=== PATIENT | female | born 1950 | race Two or more races ===

== ENCOUNTER 2017-04-20 15:31 | Inpatient (IN) | payer MEDICARE, MEDICAID ==
[~2017-04-20] VITALS: Ht 160 cm; Wt 76.7 kg
--- NOTE | 2017-04-20 15:31 | NUR ---
SENT BY DR ORTEGA FROM OFFICE FOR ADMISSION FOR CHF. PT AAO X4, AMB WITH STEADY GAIT, BRITISH SPEAKER. DAUGHTER AT BEDISDE. RR EVEN AND AND UNLABORED, PLACED IN GOWN. DR DE SOUZA AT BEDSIDE FOR EVAL.
[2017-04-20] MEDS ORDERED: FUROSEMIDE 40 MG/4 ML VIAL IV ONE (16:30)
[2017-04-20] MEDS ORDERED: FUROSEMIDE 40 MG/4 ML VIAL ONE (16:43)
[2017-04-20] MEDS ORDERED: FUROSEMIDE 20 MG/2 ML VIAL ONE (16:43)
[2017-04-20 16:47] LABS: BASOPHILS % (AUTO) 0.9 % (0.0-2.0); EOSINOPHILS # (AUTO) 0.2 /CMM (0.0-0.7); EOSINOPHILS % (AUTO) 3.8 % (0.0-6.0); HEMATOCRIT 26 % (33-45); HEMOGLOBIN 8.9 g/dL (11.5-14.8); LYMPHOCYTES # (AUTO) 1.5 /CMM (0.8-4.8); LYMPHOCYTES % (AUTO) 30.7 % (20.0-44.0); MEAN CORPUSCULAR HEMOGLOBIN 29 PG (26.0-33.0); MEAN CORPUSCULAR HGB CONC 34 g/dl (31.0-36.0); MEAN CORPUSCULAR VOLUME 87 fL (82-100); MONOCYTES # (AUTO) 0.4 /CMM (0.1-1.30); MONOCYTES % (AUTO) 7.7 % (2.0-12.0); NEUTROPHILS # (AUTO) 2.8 /CMM (1.8-8.9); NEUTROPHILS % (AUTO) 56.9 % (43.0-81.0); PLATELET COUNT (AUTO) 363 /CMM (150-450); RDW COEFFICIENT OF VARIATION 13.6 (11.5-15.0); RED BLOOD CELL COUNT(AUTO) 3.05 MIL/uL (4.0-5.2); WHITE BLOOD COUNT (AUTO) 4.9 K/uL (4.3-11.0)
[2017-04-20] MEDS ORDERED: ALBU8.5H2 IH (17:01)
[2017-04-20] MEDS ORDERED: PANT40TA4 PO (17:01)
[2017-04-20] MEDS ORDERED: MULT-659 PO (17:01)
[2017-04-20] MEDS ORDERED: BUME1TAB16 PO (17:01)
[2017-04-20] MEDS ORDERED: FERR-58 PO (17:01)
[2017-04-20] MEDS ORDERED: SITA50TA PO (17:01)
[2017-04-20] MEDS ORDERED: MONT10TA22 PO (17:01)
[2017-04-20] MEDS ORDERED: OMEG500C PO (17:01)
[2017-04-20] MEDS ORDERED: ATOR10TA PO (17:01)
[2017-04-20 17:03] LABS: CALCIUM, SERUM 8.6 mg/dL (8.5-10.1); CREATININE 1.4 mg/dL (0.6-1.3); POTASSIUM 4.8 mmol/L (3.5-5.1)
[2017-04-20 17:07] LABS: INR 1.07 (0.87-1.13); PROTHROMBIN TIME 11.1 SECS (9.5-12.7)
[2017-04-20 17:12] LABS: TROPONIN I 0.204 ng/mL (0.00-0.056)
[2017-04-20 17:16] LABS: ALBUMIN 2.8 g/dL (3.4-5.0); BILIRUBIN,DIRECT 0.1 mg/dL (0.0-0.2); BILIRUBIN,TOTAL 0.5 mg/dL (0.2-1.0); TOTAL PROTEIN, SERUM 6.6 g/dL (6.4-8.2)
[2017-04-20] MEDS ORDERED: ALBUTEROL FS 2.5 MG/3 ML VIAL.NEB NEB PRN (17:30)
[2017-04-20] MEDS ORDERED: ZOLPIDEM TARTRATE 5 MG TABLET PO PRN (17:30)
[2017-04-20] MEDS ORDERED: ACETAMINOPHEN 325 MG TABLET PO PRN (17:30)
[2017-04-20] MEDS ORDERED: Z GUARD REMEDY 2 OZ OINT TP PRN (17:30)
[2017-04-20] MEDS ORDERED: MAG HYDROX/AL HYDROX/SIMETH 30 ML UDC PO PRN (17:30)
[2017-04-20] MEDS ORDERED: ONDANSETRON HCL/PF 4 MG/2 ML VIAL IVP PRN (17:30)
[2017-04-20] MEDS ORDERED: ENOXAPARIN SODIUM 40 MG/0.4 ML DISP.SYRIN SQ SCH (17:30)
[2017-04-20] MEDS ORDERED: MAGNESIUM HYDROXIDE 30 ML UDC PO PRN (17:30)
[2017-04-20] MEDS ORDERED: DEXTROSE 50%-WATER 50 ML DISP.SYRIN IV PRN (17:30)
[2017-04-20] MEDS ORDERED: HYDROCODONE/APAP 5/325MG 1 EACH TABLET PO PRN (17:30)
[2017-04-20] MEDS ORDERED: ASPIRIN 81 MG TAB.CHEW PO ONE (18:00)
[2017-04-20] MEDS ORDERED: MONTELUKAST SODIUM (10MG) 10 MG TABLET PO SCH (18:00)
--- NOTE | 2017-04-20 18:19 | NUR ---
REPORT GIVEN TO CHINO CLARK FOR ANTOINETTE
[2017-04-20] MEDS ORDERED: ASPIRIN 81 MG TAB.CHEW ONE (18:30)
--- NOTE | 2017-04-20 18:30 | NUR ---
MS RN RECEIVED A 66 YEAR OLD FEMALE, AWAKE,ALERT,ORIENTED X3,NOT IN ANY FORM OF DISTRESS, RESPIRATIONS EVEN AND UNLABORED,NO SOB NOTED. NEW ADMISSION FROM ER, W/ DX OF CHF, DENIES PAIN AT THIS TIME, WILL MONITOR PATIENT'S CONDITION.
[2017-04-20 19:15] VITALS: BP 134/81
--- NOTE | 2017-04-20 19:30 | NUR ---
MS RN REPORT GIVEN TO PATIENT COORDINATOR FOR CONTINUITY OF CARE.
--- NOTE | 2017-04-20 19:31 | NUR ---
RN NOTES ADMITTED A 66 YEARS OLD FEMALE PT FROM ER WITH PRIMARY DIAGNOSIS OF ACUTE CHF UNDER DR LEDESMA. PT ALERT AND ORIENTED X3, APPEARS ANXIOUS WITH DAUGHTER AT BEDSIDE. VITAL SIGNS STABLE, NO SOB, NOT IN DISTRESS, ON ROOM AIR WITH GOOD SATURATION. PT DENIES ANY PAIN AND DISCOMFORT AT THIS TIME. ATTACHED TO TELE MONITOR WHICH READS SINUS TACH WITH HEART RATE AT 104. SKIN AND BODY ASSESSMENT DONE, SKIN CLEAR AND INTACT WITH PITTING EDEMA +3 ON BOTH LOWER LEG. PT IS AMBULATORY WITH STEADY GAIT. KEPT COMFORTABLE AND ATTENDED. ALL ORDERS NOTED AND CARRIED OUT. WILL CONTINUE TO MONITOR PT.
--- NOTE | 2017-04-20 19:55 | NUR ---
RN NOTES VISITED BY DR MAJOR, SEEN AND EXAMINED PT. NO NEW ORDERS MADE.
[2017-04-20 20:00] VITALS: BP 134/81
[2017-04-20] MEDS ORDERED: ENOXAPARIN SODIUM 30 MG/0.3 ML DISP.SYRIN SQ SCH (21:00)
--- NOTE | 2017-04-20 22:28 | NUR ---
RN NOTES PT COMPLAINS OF MILD CHEST PAIN 3/10, AFTER GOING TO THE BATHROOM. TYLENOL 650 MG TAB GIVEN PO AND TOLERATED WELL WILL CONTINUE TO MONITOR PT.
[2017-04-20] MEDS: BLOOD SUGAR DIAGNOSTIC 1 EACH STRIP IN SCH (22:29)
[2017-04-20] MEDS: INSULIN REGULAR, HUMAN 100 UNIT/ML 3 ML VIAL SQ PRN (22:30)
--- NOTE | 2017-04-20 22:30 | NUR ---
RN NOTES BLOOD SUGAR CHECKED 225 MG/DL, PT REFUSED FOR THE 4 UNITS INSULIN PER SLIDING SCALE. PT SAID SHE'S NOT TAKING INSULIN ONLY JANUVIA IN AM. RISK AND BENEFITS WERE EXPLAINED, PT STRONGLY REFUSED. WILL CONTINUE TO MONITOR PT.
[2017-04-21] MEDS ORDERED: MORPHINE SULFATE INJ 2 MG/ML DISP.SYRIN IV PRN
--- NOTE | 2017-04-21 | NUR ---
RN NOTES PT REFUSED TO CHECKED HER VITAL SIGNS DUE AT THIS TIME.
[2017-04-21] MEDS: BLOOD SUGAR DIAGNOSTIC 1 EACH STRIP IN SCH (06:46)
--- NOTE | 2017-04-21 06:46 | NUR ---
RN NOTES BLOOD SUGAR CHECKED 119 MG/DL, NO INSULIN COVERAGE PER SLIDING SCALE. NO SIGNS OG HYPOGLYCEMIA NOTED.
[2017-04-21] MEDS: INSULIN REGULAR, HUMAN 100 UNIT/ML 3 ML VIAL SQ PRN (06:47)
[2017-04-21 07:07] VITALS: BP 135/83
--- NOTE | 2017-04-21 07:20 | NUR ---
RN NOTES PT AWAKE SITTING IN BED, DENIES ANY PAIN AND DISCOMFORT AT THIS TIME. ON ROOM AIR AND TOLERATED WELL. VITAL SIGNS STABLE, AFEBRILE. NO COMPLAIN OF CHEST PAIN, NO EPISODE OF NAUSEA AND VOMITING. TELEMONITOR READS SINUS TACH WITH HEART OF 103. ALL NEEDS ATTENDED. PT VERBALIZING SHE WANTS TO GO HOME TODAY. ENDORSED TO MORNING RN FOR CONTINUITY OF CARE.
[2017-04-21 07:26] LABS: BASOPHILS % (AUTO) 0.8 % (0.0-2.0); EOSINOPHILS # (AUTO) 0.2 /CMM (0.0-0.7); EOSINOPHILS % (AUTO) 4.9 % (0.0-6.0); HEMATOCRIT 27 % (33-45); HEMOGLOBIN 9.4 g/dL (11.5-14.8); LYMPHOCYTES # (AUTO) 1.9 /CMM (0.8-4.8); LYMPHOCYTES % (AUTO) 37.7 % (20.0-44.0); MEAN CORPUSCULAR HEMOGLOBIN 31 PG (26.0-33.0); MEAN CORPUSCULAR HGB CONC 35 g/dl (31.0-36.0); MEAN CORPUSCULAR VOLUME 89 fL (82-100); MONOCYTES # (AUTO) 0.4 /CMM (0.1-1.30); NEUTROPHILS # (AUTO) 2.4 /CMM (1.8-8.9); NEUTROPHILS % (AUTO) 47.6 % (43.0-81.0); PLATELET COUNT (AUTO) 341 /CMM (150-450); RDW COEFFICIENT OF VARIATION 14.7 (11.5-15.0)
[2017-04-21] MEDS ORDERED: PANTOPRAZOLE 40 MG TABLET.DR PO SCH (07:30)
[2017-04-21 07:33] LABS: CALCIUM, SERUM 8.8 mg/dL (8.5-10.1); CREATININE 1.3 mg/dL (0.6-1.3); PHOSPHORUS 4.3 mg/dL (2.5-4.9); POTASSIUM 4.4 mmol/L (3.5-5.1)
--- NOTE | 2017-04-21 07:59 | NUR ---
PIANO MACHINE OPERATOR NOTES RECEIVED PATIENT IN BED, A/O X 4, VERBALLY RESPONSIVE. NO APPARENT DISTRESS NOTED, DENIES PAIN, DENIES SOB. PATIENT ON TELE MONITOR, SR 92. IV LINE ON LEFT AC PATENT, NO S/S OF INFILTRATION NOTED. ALL NEEDS MET, KEPT CLEAN AND DRY.
[2017-04-21] MEDS ORDERED: FUROSEMIDE 40 MG/4 ML VIAL IV SCH (09:00)
[2017-04-21] MEDS ORDERED: ASPIRIN 81 MG TAB.CHEW PO SCH (09:00)
[2017-04-21] MEDS ORDERED: ATORVASTATIN 10 MG TABLET PO SCH (09:00)
--- NOTE | 2017-04-21 13:25 | NUR ---
RN CLOSING NOTES PATIENT LEFT AGAINST MEDICAL ADVISE, IN STABLE CONDITION, EXPLAINED THE RISKS OF LEAVING, STILL DECIDED TO GO, DR ORTEGA AWARE. PATIENT LEFT VIA PRIVATE CAR ACCOMPANIED BY HER DAUGHTER. PATIENT TEACHING DONE, VERBALIZED UNDERSTANDING. IV LINE DISCONTINUED, BELONGINGS LIST SIGNED, ALL BELONGINGS ACCOUNTED FOR. ALL NEEDS MET, KEPT CLEAN DRY.
== END 2017-04-21 13:22 | disposition left against medical advice (07) | DRG 280 ==
LOC: ER 15:34 → TELE 18:44 → MED 04-21 13:04
PROVIDERS: ADMIT Internal Medicine; ATTEND Internal Medicine
DX: I11.0 Hypertensive heart disease with heart failure (principal); I21.4 Non-ST elevation (NSTEMI) myocardial infarction; N17.0 Acute kidney failure with tubular necrosis; E78.5 Hyperlipidemia, unspecified; E66.9 Obesity, unspecified; E11.9 Type 2 diabetes mellitus without complications; I25.10 Atherosclerotic heart disease of native coronary artery without angina pectoris; I42.9 Cardiomyopathy, unspecified; I50.23 Acute on chronic systolic (congestive) heart failure; J45.909 Unspecified asthma, uncomplicated; Z68.29 Body mass index [BMI] 29.0-29.9, adult; I34.0 Nonrheumatic mitral (valve) insufficiency
CPT/HCPCS: 36415; 71010-TC; 80048-TC; 80061-TC; 80076-TC; 82962-TC; 83735-TC; 83880; 84100-TC; 84484-TC; 85025-TC; 85730-TC; 87081-TC; 93307-TC; 93970-TC; A4606; J1650; J1815; J1940; Z7610

== ENCOUNTER 2017-04-25 12:51 | Outpatient (CLI) | payer MEDICARE, MEDICAID ==
[~2017-04-25 12:51] MED LIST: ALBU8.5H2 IH; ATOR10TA PO; BUME1TAB16 PO; FERR-58 PO; MONT10TA22 PO; MULT-659 PO; OMEG500C PO; PANT40TA4 PO; SITA50TA PO
[2017-04-25 13:35] LABS: CALCIUM, SERUM 8.3 mg/dL (8.5-10.1); CREATININE 1.3 mg/dL (0.6-1.3); MAGNESIUM 1.9 mg/dL (1.8-2.4); POTASSIUM 4.8 mmol/L (3.5-5.1)
== END 2017-04-25 23:59 | disposition home or self-care (01) ==
LOC: LAB 12:51
PROVIDERS: ATTEND Internal Medicine Interventional Cardiology
DX: I11.0 Hypertensive heart disease with heart failure (principal); I50.9 Heart failure, unspecified; R60.9 Edema, unspecified
CPT/HCPCS: 36415; 80048-TC; 83735-TC

== ENCOUNTER 2019-04-24 11:12 | Outpatient (CLI) | payer MEDICARE, MEDICAID ==
[~2019-04-24 11:12] MED LIST changes: -ALBU8.5H2 IH; +ALBU8.5H8 IH; -BUME1TAB16 PO; +BUME1TAB34 PO; -FERR-58 PO; +FERR325T23 PO
== END 2019-04-24 23:59 | disposition home or self-care (01) ==
LOC: RAD 11:12
PROVIDERS: ATTEND Internal Medicine Interventional Cardiology
DX: J90 Pleural effusion, not elsewhere classified (principal); I70.0 Atherosclerosis of aorta; I25.10 Atherosclerotic heart disease of native coronary artery without angina pectoris; I51.7 Cardiomegaly; M77.8 Other enthesopathies, not elsewhere classified
CPT/HCPCS: 71250-TC

== ENCOUNTER 2020-05-29 10:23 | Outpatient (CLI) | payer MEDICARE, MEDICAID | END 2020-05-29 23:59 | disposition home or self-care (01) | LOC: CT 10:23 | PROVIDERS: ATTEND Internal Medicine | DX: I51.7 Cardiomegaly (principal); J90 Pleural effusion, not elsewhere classified; J98.11 Atelectasis; R18.8 Other ascites; K80.20 Calculus of gallbladder without cholecystitis without obstruction; R10.9 Unspecified abdominal pain ==

== ENCOUNTER 2020-06-13 13:58 | Outpatient (CLI) | payer MEDICARE, MEDICAID ==
[~2020-06-13 13:58] MED LIST changes: -PANT40TA4 PO; +PANT40TA49 PO
[2020-06-13 17:37] LABS: APPEARANCE,URINE CLEAR (CLEAR); BILIRUBIN,URINE NEGATIVE (NEGATIVE); BLOOD, URINE SMALL Ery/uL (NEGATIVE); COLOR,URINE YELLOW (YELLOW); KETONES,URINE NEGATIVE (NEGATIVE); LEUKOCYTE ESTERASE ,URINE NEGATIVE (NEGATIVE); NITRITE, URINE NEGATIVE (NEGATIVE); PROTEIN,URINE >=300 mg/dl (NEGATIVE); UGLUCOSE NEGATIVE (NEGATIVE); UROBILINOGEN,URINE 0.2 EU/dL (0.2)
== END 2020-06-13 23:59 | disposition home or self-care (01) ==
LOC: MSC 13:58
PROVIDERS: ATTEND Internal Medicine
DX: K59.00 Constipation, unspecified (principal); E11.22 Type 2 diabetes mellitus with diabetic chronic kidney disease; I13.0 Hypertensive heart and chronic kidney disease with heart failure and stage 1 through stage 4 chronic kidney disease, or unspecified chronic kidney disease; N18.3 Chronic kidney disease, stage 3 (moderate); I50.21 Acute systolic (congestive) heart failure; Z79.84 Long term (current) use of oral hypoglycemic drugs; E11.21 Type 2 diabetes mellitus with diabetic nephropathy; R80.9 Proteinuria, unspecified; J90 Pleural effusion, not elsewhere classified; K21.9 Gastro-esophageal reflux disease without esophagitis; R53.1 Weakness; Z79.899 Other long term (current) drug therapy
CPT/HCPCS: 81001; 87086; G0463; 81000-TC

== ENCOUNTER 2020-07-24 11:43 | Outpatient (CLI) | payer MEDICARE, MEDICAID ==
[2020-07-24 13:33] LABS: EOSINOPHILS % (AUTO) 2.1 % (0.0-6.0); HEMATOCRIT 36 % (33-45); HEMOGLOBIN 11.5 g/dL (11.5-14.8); LYMPHOCYTES # (AUTO) 1.1 /CMM (0.8-4.8); LYMPHOCYTES % (AUTO) 24.3 % (20.0-44.0); MEAN CORPUSCULAR HGB CONC 32 g/dl (31.0-36.0); MEAN CORPUSCULAR VOLUME 93 fL (82-100); MONOCYTES # (AUTO) 0.4 /CMM (0.1-1.30); MONOCYTES % (AUTO) 9.4 % (2.0-12.0); NEUTROPHILS # (AUTO) 2.9 /CMM (1.8-8.9); NEUTROPHILS % (AUTO) 63.2 % (43.0-81.0); PLATELET COUNT (AUTO) 230 /CMM (150-450); RED BLOOD CELL COUNT(AUTO) 3.87 MIL/uL (4.0-5.2); WHITE BLOOD COUNT (AUTO) 4.5 K/uL (4.3-11.0)
[2020-07-24 13:52] LABS: ALBUMIN 3.2 g/dL (3.4-5.0); APPEARANCE,URINE SL CLOUDY (CLEAR); BILIRUBIN,TOTAL 0.6 mg/dL (0.2-1.0); BILIRUBIN,URINE NEGATIVE (NEGATIVE); BLOOD, URINE SMALL Ery/uL (NEGATIVE); CALCIUM, SERUM 8.8 mg/dL (8.5-10.1); COLOR,URINE YELLOW (YELLOW); CREATININE 1.7 mg/dL (0.6-1.3); KETONES,URINE NEGATIVE (NEGATIVE); LEUKOCYTE ESTERASE ,URINE NEGATIVE (NEGATIVE); MAGNESIUM 2.2 mg/dL (1.8-2.4); NITRITE, URINE NEGATIVE (NEGATIVE); PH,URINE 6.5 (5.0-8.0); PHOSPHORUS 3.7 mg/dL (2.5-4.9); PROTEIN,URINE >=300 mg/dl (NEGATIVE); TOTAL PROTEIN, SERUM 7.4 g/dL (6.4-8.2); UGLUCOSE NEGATIVE (NEGATIVE)
[2020-07-24 14:06] LABS: BACTERIA,URINE Few /HPF (None Seen); SQUAMOUS EPITHELIAL CELL,UR Moderate /HPF (None Seen)
[2020-07-24 14:07] LABS: WBC,URINE 0-2 /HPF (0-3)
== END 2020-07-24 23:59 | disposition home or self-care (01) ==
LOC: MSC 11:43
PROVIDERS: ATTEND Internal Medicine
DX: M62.81 Muscle weakness (generalized) (principal); R30.0 Dysuria; K59.00 Constipation, unspecified; E11.22 Type 2 diabetes mellitus with diabetic chronic kidney disease; I13.0 Hypertensive heart and chronic kidney disease with heart failure and stage 1 through stage 4 chronic kidney disease, or unspecified chronic kidney disease; N18.3 Chronic kidney disease, stage 3 (moderate); I50.21 Acute systolic (congestive) heart failure; E11.21 Type 2 diabetes mellitus with diabetic nephropathy; R80.9 Proteinuria, unspecified; K21.9 Gastro-esophageal reflux disease without esophagitis; J90 Pleural effusion, not elsewhere classified
CPT/HCPCS: 36415; 80053; 81001; 83735; 84100; 85025; 87086; G0463; 81000-TC

== ENCOUNTER 2020-08-05 13:51 | Outpatient (CLI) | payer MEDICARE, MEDICAID ==
[2020-08-05 14:16] LABS: BASOPHILS # (AUTO) 0.1 /CMM (0.0-0.2); BASOPHILS % (AUTO) 1.8 % (0.0-2.0); EOSINOPHILS % (AUTO) 0.9 % (0.0-6.0); HEMATOCRIT 36 % (33-45); HEMOGLOBIN 11.8 g/dL (11.5-14.8); LYMPHOCYTES # (AUTO) 1.2 /CMM (0.8-4.8); LYMPHOCYTES % (AUTO) 25.7 % (20.0-44.0); MEAN CORPUSCULAR HGB CONC 33 g/dl (31.0-36.0); MEAN CORPUSCULAR VOLUME 93 fL (82-100); MONOCYTES # (AUTO) 0.3 /CMM (0.1-1.30); MONOCYTES % (AUTO) 6.8 % (2.0-12.0); NEUTROPHILS % (AUTO) 64.8 % (43.0-81.0); PLATELET COUNT (AUTO) 258 /CMM (150-450); RED BLOOD CELL COUNT(AUTO) 3.87 MIL/uL (4.0-5.2); WHITE BLOOD COUNT (AUTO) 4.6 K/uL (4.3-11.0)
[2020-08-05 17:17] LABS: CALCIUM, SERUM 7.8 mg/dL (8.5-10.1); CREATININE 1.7 mg/dL (0.6-1.3); POTASSIUM 3.8 mmol/L (3.5-5.1)
== END 2020-08-05 23:59 | disposition home or self-care (01) ==
LOC: LAB 13:51
PROVIDERS: ATTEND Internal Medicine
DX: N18.9 Chronic kidney disease, unspecified (principal); I70.0 Atherosclerosis of aorta; J90 Pleural effusion, not elsewhere classified; M47.819 Spondylosis without myelopathy or radiculopathy, site unspecified
CPT/HCPCS: 36415; 71046; 80048-TC; 85025-TC

== ENCOUNTER 2020-09-18 11:15 | Outpatient (CLI) | payer MEDICARE, MEDICAID ==
[2020-09-18 12:52] LABS: BILIRUBIN,URINE NEGATIVE (NEGATIVE); BLOOD, URINE SMALL Ery/uL (NEGATIVE); COLOR,URINE YELLOW (YELLOW); LEUKOCYTE ESTERASE ,URINE NEGATIVE (NEGATIVE); NITRITE, URINE POSITIVE (NEGATIVE); PH,URINE 6.5 (5.0-8.0); PROTEIN,URINE >=300 mg/dl (NEGATIVE); UGLUCOSE NEGATIVE (NEGATIVE)
[2020-09-18 13:06] LABS: C-REACTIVE PROTEIN 0.5 mg/dL (0.0-0.9); FREE T4 (FREE THYROXINE) 1.38 ng/dL (0.76-1.46); THYROID STIMULATING HORMONE 2.371 uIU/mL (0.358-3.74)
[2020-09-18 13:12] LABS: BACTERIA,URINE Few /HPF (None Seen); SQUAMOUS EPITHELIAL CELL,UR Few /HPF (None Seen); WBC,URINE 0-2 /HPF (0-3)
[2020-09-18 13:26] LABS: ALBUMIN 3.2 g/dL (3.4-5.0); BILIRUBIN,TOTAL 0.6 mg/dL (0.2-1.0); CALCIUM, SERUM 8.6 mg/dL (8.5-10.1); CREATININE 1.6 mg/dL (0.6-1.3); POTASSIUM 4.1 mmol/L (3.5-5.1); TOTAL PROTEIN, SERUM 7.5 g/dL (6.4-8.2)
== END 2020-09-18 23:59 | disposition home or self-care (01) ==
LOC: MSC 11:15
PROVIDERS: ATTEND Internal Medicine
DX: R53.1 Weakness (principal); R30.0 Dysuria; E11.22 Type 2 diabetes mellitus with diabetic chronic kidney disease; I13.0 Hypertensive heart and chronic kidney disease with heart failure and stage 1 through stage 4 chronic kidney disease, or unspecified chronic kidney disease; N18.32 Chronic kidney disease, stage 3b; I50.21 Acute systolic (congestive) heart failure; Z79.84 Long term (current) use of oral hypoglycemic drugs; E11.21 Type 2 diabetes mellitus with diabetic nephropathy; J90 Pleural effusion, not elsewhere classified; K21.9 Gastro-esophageal reflux disease without esophagitis; J01.90 Acute sinusitis, unspecified; Z79.899 Other long term (current) drug therapy
CPT/HCPCS: 36415 ×2; 80053; 80061; 81001; 82607; 82746; 83036; 83735; 84100; 84439; 84443; 86140; 87077; 87086; 87186; G0463

== ENCOUNTER 2020-11-18 09:15 | Outpatient (CLI) | payer MEDICARE, MEDICAID | END 2020-11-18 23:59 | disposition home or self-care (01) | LOC: MSC 09:15 | PROVIDERS: ATTEND Internal Medicine | DX: M25.562 Pain in left knee (principal); M25.561 Pain in right knee; R26.2 Difficulty in walking, not elsewhere classified; M79.605 Pain in left leg; M79.604 Pain in right leg; R05 Cough; J39.2 Other diseases of pharynx; R53.1 Weakness; E11.22 Type 2 diabetes mellitus with diabetic chronic kidney disease; I13.0 Hypertensive heart and chronic kidney disease with heart failure and stage 1 through stage 4 chronic kidney disease, or unspecified chronic kidney disease; N18.4 Chronic kidney disease, stage 4 (severe); I50.22 Chronic systolic (congestive) heart failure; Z79.84 Long term (current) use of oral hypoglycemic drugs; K21.9 Gastro-esophageal reflux disease without esophagitis; E11.21 Type 2 diabetes mellitus with diabetic nephropathy; Z79.899 Other long term (current) drug therapy ==

== ENCOUNTER 2020-11-21 11:56 | Outpatient (CLI) | payer MEDICARE, MEDICAID | END 2020-11-21 23:59 | disposition home or self-care (01) | LOC: RAD 11:56 | PROVIDERS: ATTEND Internal Medicine | DX: M17.0 Bilateral primary osteoarthritis of knee (principal); M25.762 Osteophyte, left knee; M25.761 Osteophyte, right knee | CPT/HCPCS: 73560-TC; 73590-TC ==

== ENCOUNTER 2020-12-02 16:18 | Outpatient (CLI) | payer MEDICARE, MEDICAID | END 2020-12-02 23:59 | disposition home or self-care (01) | LOC: MSC 16:18 | PROVIDERS: ATTEND Anesthesiology | DX: M79.2 Neuralgia and neuritis, unspecified (principal); M54.16 Radiculopathy, lumbar region; M62.830 Muscle spasm of back; M25.561 Pain in right knee; M25.562 Pain in left knee; M25.9 Joint disorder, unspecified; G82.20 Paraplegia, unspecified ==

== ENCOUNTER 2020-12-11 11:33 | Outpatient (CLI) | payer MEDICARE, MEDICAID ==
[2020-12-11 12:49] LABS: BILIRUBIN,URINE NEGATIVE (NEGATIVE); COLOR,URINE YELLOW (YELLOW); LEUKOCYTE ESTERASE ,URINE NEGATIVE (NEGATIVE); NITRITE, URINE NEGATIVE (NEGATIVE); PH,URINE 6.5 (5.0-8.0); PROTEIN,URINE >=300 mg/dl (NEGATIVE); UGLUCOSE NEGATIVE (NEGATIVE)
[2020-12-11 13:28] LABS: ALBUMIN 3.1 g/dL (3.4-5.0); BILIRUBIN,TOTAL 0.6 mg/dL (0.2-1.0); CALCIUM, SERUM 8.6 mg/dL (8.5-10.1); CREATININE 1.8 mg/dL (0.6-1.3); CREATININE, URINE 180.5 MG/DL (30.0-125.0); POTASSIUM 4.1 mmol/L (3.5-5.1); TOTAL PROTEIN, SERUM 7.5 g/dL (6.4-8.2)
[2020-12-11 13:38] LABS: BACTERIA,URINE Few /HPF (None Seen); SQUAMOUS EPITHELIAL CELL,UR Few /HPF (None Seen); WBC,URINE 0-2 /HPF (0-3)
[2020-12-11 14:06] LABS: BASOPHILS # (AUTO) 0.1 /CMM (0.0-0.2); EOSINOPHILS % (AUTO) 2.6 % (0.0-6.0); HEMATOCRIT 36 % (33-45); HEMOGLOBIN 11.8 g/dL (11.5-14.8); LYMPHOCYTES % (AUTO) 18.6 % (20.0-44.0); MEAN CORPUSCULAR HGB CONC 33 g/dl (31.0-36.0); MEAN CORPUSCULAR VOLUME 94 fL (82-100); MONOCYTES # (AUTO) 0.5 /CMM (0.1-1.30); MONOCYTES % (AUTO) 9.7 % (2.0-12.0); NEUTROPHILS # (AUTO) 3.5 /CMM (1.8-8.9); NEUTROPHILS % (AUTO) 68.1 % (43.0-81.0); PLATELET COUNT (AUTO) 273 /CMM (150-450); RED BLOOD CELL COUNT(AUTO) 3.87 MIL/uL (4.0-5.2); WHITE BLOOD COUNT (AUTO) 5.1 K/uL (4.3-11.0)
[2020-12-11 15:55] LABS: URINE TOTAL PROTEIN 603.4 mg/dL (0-11.9)
== END 2020-12-11 23:59 | disposition home or self-care (01) ==
LOC: MSC 11:33
PROVIDERS: ATTEND Internal Medicine
DX: M54.5 Low back pain (principal); M25.562 Pain in left knee; M25.561 Pain in right knee; R05 Cough; R30.0 Dysuria; E11.22 Type 2 diabetes mellitus with diabetic chronic kidney disease; I13.0 Hypertensive heart and chronic kidney disease with heart failure and stage 1 through stage 4 chronic kidney disease, or unspecified chronic kidney disease; N18.30 Chronic kidney disease, stage 3 unspecified; I50.21 Acute systolic (congestive) heart failure; Z79.84 Long term (current) use of oral hypoglycemic drugs; E11.21 Type 2 diabetes mellitus with diabetic nephropathy; R80.9 Proteinuria, unspecified; K59.00 Constipation, unspecified; K21.9 Gastro-esophageal reflux disease without esophagitis; Z79.899 Other long term (current) drug therapy
CPT/HCPCS: 36415; 80053; 81001; 82570; 84155; 85025; 87077; 87086; 87186; G0463

== ENCOUNTER 2021-01-27 14:00 | Outpatient (CLI) | payer MEDICARE, MEDICAID | END 2021-01-27 23:59 | disposition home or self-care (01) | LOC: MSC 14:00 | PROVIDERS: ATTEND Anesthesiology | DX: M62.830 Muscle spasm of back (principal); M25.562 Pain in left knee; M25.561 Pain in right knee; R26.2 Difficulty in walking, not elsewhere classified; M79.2 Neuralgia and neuritis, unspecified; G82.20 Paraplegia, unspecified; Z79.899 Other long term (current) drug therapy ==

== ENCOUNTER 2021-02-03 11:30 | Outpatient (CLI) | payer MEDICARE, MEDICAID | END 2021-02-03 23:59 | disposition home or self-care (01) | LOC: MSC 11:30 | PROVIDERS: ATTEND Internal Medicine | DX: R09.89 Other specified symptoms and signs involving the circulatory and respiratory systems (principal); M54.42 Lumbago with sciatica, left side; M54.41 Lumbago with sciatica, right side; R30.0 Dysuria; K59.00 Constipation, unspecified; E11.22 Type 2 diabetes mellitus with diabetic chronic kidney disease; I13.0 Hypertensive heart and chronic kidney disease with heart failure and stage 1 through stage 4 chronic kidney disease, or unspecified chronic kidney disease; N18.32 Chronic kidney disease, stage 3b; I50.21 Acute systolic (congestive) heart failure; Z79.84 Long term (current) use of oral hypoglycemic drugs; J90 Pleural effusion, not elsewhere classified; K21.9 Gastro-esophageal reflux disease without esophagitis; Z79.2 Long term (current) use of antibiotics; Z79.899 Other long term (current) drug therapy ==

== ENCOUNTER 2021-02-19 11:38 | Outpatient (CLI) | payer MEDICARE, MEDICAID ==
[2021-02-19 12:43] LABS: BASOPHILS # (AUTO) 0.1 /CMM (0.0-0.2); EOSINOPHILS % (AUTO) 1.9 % (0.0-6.0); HEMATOCRIT 35 % (33-45); HEMOGLOBIN 11.3 g/dL (11.5-14.8); LYMPHOCYTES # (AUTO) 0.8 /CMM (0.8-4.8); LYMPHOCYTES % (AUTO) 14.7 % (20.0-44.0); MEAN CORPUSCULAR HGB CONC 33 g/dl (31.0-36.0); MEAN CORPUSCULAR VOLUME 94 fL (82-100); MONOCYTES # (AUTO) 0.5 /CMM (0.1-1.30); MONOCYTES % (AUTO) 8.4 % (2.0-12.0); PLATELET COUNT (AUTO) 249 /CMM (150-450); RED BLOOD CELL COUNT(AUTO) 3.67 MIL/uL (4.0-5.2); WHITE BLOOD COUNT (AUTO) 5.4 K/uL (4.3-11.0)
[2021-02-19 12:44] LABS: BILIRUBIN,URINE NEGATIVE (NEGATIVE); COLOR,URINE YELLOW (YELLOW); LEUKOCYTE ESTERASE ,URINE NEGATIVE (NEGATIVE); NITRITE, URINE NEGATIVE (NEGATIVE); PH,URINE 6.5 (5.0-8.0); PROTEIN,URINE >=300 mg/dl (NEGATIVE); UGLUCOSE NEGATIVE (NEGATIVE)
[2021-02-19 12:59] LABS: C-REACTIVE PROTEIN 0.9 mg/dL (0.0-0.9)
[2021-02-19 13:05] LABS: ALBUMIN 3.2 g/dL (3.4-5.0); BILIRUBIN,TOTAL 0.6 mg/dL (0.2-1.0); CALCIUM, SERUM 8.2 mg/dL (8.5-10.1); CREATININE 1.8 mg/dL (0.6-1.3); MAGNESIUM 1.9 mg/dL (1.8-2.4); PHOSPHORUS 3.7 mg/dL (2.5-4.9); TOTAL PROTEIN, SERUM 7.5 g/dL (6.4-8.2); URINE TOTAL PROTEIN 297.1 mg/dL (0-11.9)
[2021-02-19 13:12] LABS: BACTERIA,URINE Moderate /HPF (None Seen); SQUAMOUS EPITHELIAL CELL,UR Few /HPF (None Seen)
== END 2021-02-19 23:59 | disposition home or self-care (01) ==
LOC: MSC 11:38
PROVIDERS: ATTEND Internal Medicine
DX: N93.9 Abnormal uterine and vaginal bleeding, unspecified (principal); Z87.440 Personal history of urinary (tract) infections; R31.9 Hematuria, unspecified; R05 Cough; K59.00 Constipation, unspecified; K21.9 Gastro-esophageal reflux disease without esophagitis; E11.22 Type 2 diabetes mellitus with diabetic chronic kidney disease; I13.0 Hypertensive heart and chronic kidney disease with heart failure and stage 1 through stage 4 chronic kidney disease, or unspecified chronic kidney disease; N18.32 Chronic kidney disease, stage 3b; I50.21 Acute systolic (congestive) heart failure; Z79.84 Long term (current) use of oral hypoglycemic drugs; M25.561 Pain in right knee; M25.562 Pain in left knee; M62.81 Muscle weakness (generalized); J90 Pleural effusion, not elsewhere classified; Z79.899 Other long term (current) drug therapy
CPT/HCPCS: 36415; 80053; 81001; 82043; 82306; 82570; 83036; 83735; 84100; 84155; 85025; 85652; 86140; 87086; G0463

== ENCOUNTER 2021-05-18 14:20 | Outpatient (CLI) | payer MEDICARE, MEDICAID ==
[2021-05-18 15:12] LABS: BASOPHILS # (AUTO) 0.1 K/uL (0.0-0.2); EOSINOPHILS % (AUTO) 2.4 % (0.0-6.0); HEMATOCRIT 36 % (33-45); HEMOGLOBIN 11.9 g/dL (11.5-14.8); LYMPHOCYTES # (AUTO) 0.8 K/uL (0.8-4.8); MEAN CORPUSCULAR HGB CONC 33 g/dl (31.0-36.0); MEAN CORPUSCULAR VOLUME 94 fL (82-100); MONOCYTES # (AUTO) 0.5 K/uL (0.1-1.30); MONOCYTES % (AUTO) 8.1 % (2.0-12.0); NEUTROPHILS # (AUTO) 4.1 K/uL (1.8-8.9); NEUTROPHILS % (AUTO) 73.5 % (43.0-81.0); PLATELET COUNT (AUTO) 251 K/uL (150-450); RED BLOOD CELL COUNT(AUTO) 3.81 MIL/uL (4.0-5.2); WHITE BLOOD COUNT (AUTO) 5.6 K/uL (4.3-11.0)
[2021-05-18 15:56] LABS: ALANINE AMINOTRANSFERASE 14 U/L (12-78); ALBUMIN 3.1 g/dL (3.4-5.0); ALKALINE PHOSPHATASE 64 U/L (46-116); ASPARTATE AMINOTRANSFERASE 16 U/L (15-37); BILIRUBIN,TOTAL 0.5 mg/dL (0.2-1.0); CARBON DIOXIDE 28 mmol/L (21-32); CHLORIDE 105 mmol/L (98-107); CREATININE 1.9 mg/dL (0.6-1.3); GLUCOSE 142 mg/dL (74-106); MAGNESIUM 2.2 mg/dL (1.8-2.4); PHOSPHORUS 4.5 mg/dL (2.5-4.9); POTASSIUM 4.4 mmol/L (3.5-5.1); SODIUM SERUM 141 mmol/L (136-145); TOTAL PROTEIN, SERUM 7.7 g/dL (6.4-8.2); UREA NITROGEN, BLOOD 36 mg/dL (7-18)
[2021-05-18 15:57] LABS: C-REACTIVE PROTEIN 1.2 mg/dL (0.0-0.9); THYROID STIMULATING HORMONE 2.287 uIU/mL (0.358-3.74)
[2021-05-18 16:47] LABS: BILIRUBIN,URINE NEGATIVE (NEGATIVE); COLOR,URINE YELLOW (YELLOW); LEUKOCYTE ESTERASE ,URINE SMALL (NEGATIVE); NITRITE, URINE NEGATIVE (NEGATIVE); PROTEIN,URINE 100 mg/dl (NEGATIVE); UGLUCOSE NEGATIVE (NEGATIVE); UROBILINOGEN,URINE 0.2 EU/dL (0.2)
[2021-05-18 16:54] LABS: BACTERIA,URINE 3+ /HPF (None Seen); RBC,URINE TOO NUMEROUS TO COUN /HPF (0-2); SQUAMOUS EPITHELIAL CELL,UR Moderate /HPF (None Seen); WBC,URINE TOO NUMEROUS TO COUN /HPF (0-3)
== END 2021-05-18 23:59 | disposition home or self-care (01) ==
LOC: MSC 14:20
PROVIDERS: ATTEND Internal Medicine
DX: N39.0 Urinary tract infection, site not specified (principal); R31.9 Hematuria, unspecified; E11.22 Type 2 diabetes mellitus with diabetic chronic kidney disease; I13.0 Hypertensive heart and chronic kidney disease with heart failure and stage 1 through stage 4 chronic kidney disease, or unspecified chronic kidney disease; N18.32 Chronic kidney disease, stage 3b; I50.21 Acute systolic (congestive) heart failure; Z79.84 Long term (current) use of oral hypoglycemic drugs; J30.9 Allergic rhinitis, unspecified; M54.9 Dorsalgia, unspecified; M25.562 Pain in left knee; M25.561 Pain in right knee; M79.662 Pain in left lower leg; M79.661 Pain in right lower leg; M62.81 Muscle weakness (generalized); K59.00 Constipation, unspecified; E11.21 Type 2 diabetes mellitus with diabetic nephropathy; K21.9 Gastro-esophageal reflux disease without esophagitis
CPT/HCPCS: 36415; 80053; 81001; 82043; 82570; 83036; 83735; 83880; 84100; 84155; 84443; 85025; 85652; 86140; 87077; 87086; 87186; G0463

== ENCOUNTER → 2021-05-21 | Outpatient (CLI) | payer MEDICARE, MEDICAID | END | disposition home or self-care (01) | LOC: MSC 14:30 | PROVIDERS: ATTEND Internal Medicine | DX: N39.0 Urinary tract infection, site not specified (principal); R10.2 Pelvic and perineal pain; J30.9 Allergic rhinitis, unspecified; R31.9 Hematuria, unspecified; R05 Cough; M54.9 Dorsalgia, unspecified; E11.22 Type 2 diabetes mellitus with diabetic chronic kidney disease; I13.0 Hypertensive heart and chronic kidney disease with heart failure and stage 1 through stage 4 chronic kidney disease, or unspecified chronic kidney disease; N18.32 Chronic kidney disease, stage 3b; I50.21 Acute systolic (congestive) heart failure; Z79.84 Long term (current) use of oral hypoglycemic drugs; R80.9 Proteinuria, unspecified; E11.40 Type 2 diabetes mellitus with diabetic neuropathy, unspecified; K21.9 Gastro-esophageal reflux disease without esophagitis ==

== ENCOUNTER 2021-05-26 11:04 | Outpatient (CLI) | payer MEDICARE, MEDICAID | END 2021-05-26 23:59 | disposition home or self-care (01) | LOC: US 11:04 | PROVIDERS: ATTEND Internal Medicine | DX: R10.2 Pelvic and perineal pain (principal) | CPT/HCPCS: 76856-TC ==

== ENCOUNTER → 2021-06-12 | Outpatient (CLI) | payer MEDICARE, OTHER | END | disposition home or self-care (01) | LOC: MSC 14:30 | PROVIDERS: ATTEND Internal Medicine | DX: R10.2 Pelvic and perineal pain (principal); N39.0 Urinary tract infection, site not specified; Z79.2 Long term (current) use of antibiotics; E11.22 Type 2 diabetes mellitus with diabetic chronic kidney disease; I13.0 Hypertensive heart and chronic kidney disease with heart failure and stage 1 through stage 4 chronic kidney disease, or unspecified chronic kidney disease; N18.32 Chronic kidney disease, stage 3b; I50.21 Acute systolic (congestive) heart failure; Z79.84 Long term (current) use of oral hypoglycemic drugs; E11.21 Type 2 diabetes mellitus with diabetic nephropathy; R80.9 Proteinuria, unspecified; J90 Pleural effusion, not elsewhere classified; J30.9 Allergic rhinitis, unspecified; R31.9 Hematuria, unspecified; R05 Cough; M54.9 Dorsalgia, unspecified; M25.562 Pain in left knee; M25.561 Pain in right knee; M79.605 Pain in left leg; M79.604 Pain in right leg; K21.9 Gastro-esophageal reflux disease without esophagitis; Z79.899 Other long term (current) drug therapy ==

== ENCOUNTER 2021-08-11 11:18 | Outpatient (CLI) | payer MEDICARE, OTHER ==
[2021-08-11 12:54] LABS: BASOPHILS # (AUTO) 0.1 K/uL (0.0-0.2); EOSINOPHILS % (AUTO) 2.7 % (0.0-6.0); HEMATOCRIT 35 % (33-45); HEMOGLOBIN 11.6 g/dL (11.5-14.8); LYMPHOCYTES % (AUTO) 19.5 % (20.0-44.0); MEAN CORPUSCULAR HGB CONC 33 g/dl (31.0-36.0); MEAN CORPUSCULAR VOLUME 95 fL (82-100); MONOCYTES # (AUTO) 0.4 K/uL (0.1-1.30); MONOCYTES % (AUTO) 7.8 % (2.0-12.0); NEUTROPHILS # (AUTO) 3.6 K/uL (1.8-8.9); PLATELET COUNT (AUTO) 264 K/uL (150-450); RED BLOOD CELL COUNT(AUTO) 3.73 MIL/uL (4.0-5.2); WHITE BLOOD COUNT (AUTO) 5.3 K/uL (4.3-11.0)
[2021-08-11 13:11] LABS: ALBUMIN 3.3 g/dL (3.4-5.0); BILIRUBIN,TOTAL 0.5 mg/dL (0.2-1.0); CALCIUM, SERUM 8.4 mg/dL (8.5-10.1); MAGNESIUM 2.3 mg/dL (1.8-2.4); PHOSPHORUS 4.2 mg/dL (2.5-4.9); POTASSIUM 4.6 mmol/L (3.5-5.1); TOTAL PROTEIN, SERUM 7.8 g/dL (6.4-8.2)
[2021-08-11 15:50] LABS: C-REACTIVE PROTEIN 0.6 mg/dL (0.0-0.9)
== END 2021-08-11 23:59 | disposition home or self-care (01) ==
LOC: MSC 11:18
PROVIDERS: ATTEND Internal Medicine
DX: J22 Unspecified acute lower respiratory infection (principal); M54.9 Dorsalgia, unspecified; R10.2 Pelvic and perineal pain; N39.0 Urinary tract infection, site not specified; Z79.2 Long term (current) use of antibiotics; E11.22 Type 2 diabetes mellitus with diabetic chronic kidney disease; I13.0 Hypertensive heart and chronic kidney disease with heart failure and stage 1 through stage 4 chronic kidney disease, or unspecified chronic kidney disease; N18.4 Chronic kidney disease, stage 4 (severe); I50.21 Acute systolic (congestive) heart failure; Z79.84 Long term (current) use of oral hypoglycemic drugs; E11.21 Type 2 diabetes mellitus with diabetic nephropathy; J90 Pleural effusion, not elsewhere classified; J30.9 Allergic rhinitis, unspecified; R31.9 Hematuria, unspecified; R05.9 Cough, unspecified; R53.1 Weakness; K59.00 Constipation, unspecified; K21.9 Gastro-esophageal reflux disease without esophagitis; Z79.899 Other long term (current) drug therapy
CPT/HCPCS: 36415; 71045; 80053; 82607; 83036; 83735; 84100; 85025; 85652; 86140; G0463

== ENCOUNTER → 2021-08-14 | Outpatient (CLI) | payer MEDICARE, OTHER | END | disposition home or self-care (01) | LOC: MSC 14:00 | PROVIDERS: ATTEND Internal Medicine | DX: I13.0 Hypertensive heart and chronic kidney disease with heart failure and stage 1 through stage 4 chronic kidney disease, or unspecified chronic kidney disease (principal); E11.22 Type 2 diabetes mellitus with diabetic chronic kidney disease; N18.4 Chronic kidney disease, stage 4 (severe); I50.23 Acute on chronic systolic (congestive) heart failure; Z79.84 Long term (current) use of oral hypoglycemic drugs; R05.9 Cough, unspecified; E11.21 Type 2 diabetes mellitus with diabetic nephropathy; M54.9 Dorsalgia, unspecified; R10.2 Pelvic and perineal pain; R30.0 Dysuria; Z87.440 Personal history of urinary (tract) infections; Z79.2 Long term (current) use of antibiotics; J90 Pleural effusion, not elsewhere classified; J30.9 Allergic rhinitis, unspecified; R31.9 Hematuria, unspecified; K21.9 Gastro-esophageal reflux disease without esophagitis; Z79.899 Other long term (current) drug therapy ==

== ENCOUNTER 2021-09-08 11:30 | Outpatient (CLI) | payer MEDICARE, OTHER ==
[2021-09-08 13:32] LABS: BASOPHILS % (AUTO) 0.7 % (0.0-2.0); EOSINOPHILS % (AUTO) 1.7 % (0.0-6.0); HEMATOCRIT 37 % (33-45); HEMOGLOBIN 12.3 g/dL (11.5-14.8); LYMPHOCYTES # (AUTO) 1.2 K/uL (0.8-4.8); LYMPHOCYTES % (AUTO) 18.5 % (20.0-44.0); MEAN CORPUSCULAR HGB CONC 33 g/dl (31.0-36.0); MEAN CORPUSCULAR VOLUME 94 fL (82-100); MONOCYTES # (AUTO) 0.6 K/uL (0.1-1.30); MONOCYTES % (AUTO) 8.9 % (2.0-12.0); NEUTROPHILS # (AUTO) 4.6 K/uL (1.8-8.9); NEUTROPHILS % (AUTO) 70.2 % (43.0-81.0); PLATELET COUNT (AUTO) 257 K/uL (150-450); RED BLOOD CELL COUNT(AUTO) 3.91 MIL/uL (4.0-5.2); WHITE BLOOD COUNT (AUTO) 6.5 K/uL (4.3-11.0)
[2021-09-08 14:02] LABS: C-REACTIVE PROTEIN 1.2 mg/dL (0.0-0.9); FREE T4 (FREE THYROXINE) 1.27 ng/dL (0.76-1.46)
[2021-09-08 14:59] LABS: ALBUMIN 3.4 g/dL (3.4-5.0); BILIRUBIN,TOTAL 0.6 mg/dL (0.2-1.0); CALCIUM, SERUM 8.9 mg/dL (8.5-10.1); CREATININE 2.2 mg/dL (0.6-1.3); PHOSPHORUS 4.3 mg/dL (2.5-4.9); POTASSIUM 4.1 mmol/L (3.5-5.1); TOTAL PROTEIN, SERUM 8.3 g/dL (6.4-8.2)
== END 2021-09-08 23:59 | disposition home or self-care (01) ==
LOC: MSC 11:30
PROVIDERS: ATTEND Internal Medicine
DX: R07.9 Chest pain, unspecified (principal); E11.22 Type 2 diabetes mellitus with diabetic chronic kidney disease; I13.0 Hypertensive heart and chronic kidney disease with heart failure and stage 1 through stage 4 chronic kidney disease, or unspecified chronic kidney disease; N18.4 Chronic kidney disease, stage 4 (severe); I50.21 Acute systolic (congestive) heart failure; Z79.84 Long term (current) use of oral hypoglycemic drugs; R05.9 Cough, unspecified; M54.9 Dorsalgia, unspecified; R10.2 Pelvic and perineal pain; N39.0 Urinary tract infection, site not specified; Z79.2 Long term (current) use of antibiotics; R30.0 Dysuria; E11.21 Type 2 diabetes mellitus with diabetic nephropathy; R80.9 Proteinuria, unspecified; J30.9 Allergic rhinitis, unspecified; M62.81 Muscle weakness (generalized); K21.9 Gastro-esophageal reflux disease without esophagitis
CPT/HCPCS: 71045; 80053; 80061; 83036; 83735; 84100; 84439; 84484; 85025; 85652; 86140; 93005; G0463; 36415

== ENCOUNTER → 2021-09-09 | Outpatient (CLI) | payer MEDICARE, OTHER | END | disposition home or self-care (01) | LOC: MSC 15:30 | PROVIDERS: ATTEND Internal Medicine | DX: R07.9 Chest pain, unspecified (principal); E11.22 Type 2 diabetes mellitus with diabetic chronic kidney disease; I13.0 Hypertensive heart and chronic kidney disease with heart failure and stage 1 through stage 4 chronic kidney disease, or unspecified chronic kidney disease; N18.4 Chronic kidney disease, stage 4 (severe); I50.21 Acute systolic (congestive) heart failure; Z79.84 Long term (current) use of oral hypoglycemic drugs; E11.21 Type 2 diabetes mellitus with diabetic nephropathy; R05.9 Cough, unspecified; R80.9 Proteinuria, unspecified; M54.9 Dorsalgia, unspecified; Z87.440 Personal history of urinary (tract) infections; Z79.2 Long term (current) use of antibiotics; J30.9 Allergic rhinitis, unspecified; R31.9 Hematuria, unspecified; K21.9 Gastro-esophageal reflux disease without esophagitis; Z79.899 Other long term (current) drug therapy ==

== ENCOUNTER → 2021-11-05 | Outpatient (CLI) | payer MEDICARE, OTHER | END | disposition home or self-care (01) | LOC: MSC 11:00 | PROVIDERS: ATTEND Internal Medicine | DX: R51.9 Headache, unspecified (principal); R25.2 Cramp and spasm; M54.9 Dorsalgia, unspecified; E11.22 Type 2 diabetes mellitus with diabetic chronic kidney disease; I13.0 Hypertensive heart and chronic kidney disease with heart failure and stage 1 through stage 4 chronic kidney disease, or unspecified chronic kidney disease; N18.4 Chronic kidney disease, stage 4 (severe); I50.21 Acute systolic (congestive) heart failure; Z79.84 Long term (current) use of oral hypoglycemic drugs; R05.9 Cough, unspecified; E11.21 Type 2 diabetes mellitus with diabetic nephropathy; R80.9 Proteinuria, unspecified; Z87.440 Personal history of urinary (tract) infections; Z79.2 Long term (current) use of antibiotics; J30.9 Allergic rhinitis, unspecified; R31.9 Hematuria, unspecified; K21.9 Gastro-esophageal reflux disease without esophagitis; Z79.899 Other long term (current) drug therapy ==

== ENCOUNTER 2021-11-11 14:30 | Outpatient (CLI) | payer MEDICARE, OTHER | END 2021-11-11 23:59 | disposition home or self-care (01) | LOC: MSC 14:30 | PROVIDERS: ATTEND Internal Medicine | DX: J06.9 Acute upper respiratory infection, unspecified (principal); Z20.822 Contact with and (suspected) exposure to COVID-19; R51.9 Headache, unspecified; R25.2 Cramp and spasm; M79.669 Pain in unspecified lower leg; R07.9 Chest pain, unspecified; E11.22 Type 2 diabetes mellitus with diabetic chronic kidney disease; I13.0 Hypertensive heart and chronic kidney disease with heart failure and stage 1 through stage 4 chronic kidney disease, or unspecified chronic kidney disease; N18.4 Chronic kidney disease, stage 4 (severe); I50.21 Acute systolic (congestive) heart failure; Z79.84 Long term (current) use of oral hypoglycemic drugs; E11.21 Type 2 diabetes mellitus with diabetic nephropathy; R05.9 Cough, unspecified; M54.9 Dorsalgia, unspecified; R80.9 Proteinuria, unspecified; Z87.440 Personal history of urinary (tract) infections; Z79.2 Long term (current) use of antibiotics; R31.9 Hematuria, unspecified; K21.9 Gastro-esophageal reflux disease without esophagitis; Z79.899 Other long term (current) drug therapy ==

== ENCOUNTER 2021-12-03 12:15 | Outpatient (CLI) | payer MEDICARE, OTHER | END 2021-12-03 23:59 | disposition home or self-care (01) | LOC: MSC 12:15 | PROVIDERS: ATTEND Internal Medicine | DX: J06.9 Acute upper respiratory infection, unspecified (principal); Z20.822 Contact with and (suspected) exposure to COVID-19; R51.9 Headache, unspecified; R25.2 Cramp and spasm; R07.9 Chest pain, unspecified; M54.9 Dorsalgia, unspecified; E11.22 Type 2 diabetes mellitus with diabetic chronic kidney disease; I13.0 Hypertensive heart and chronic kidney disease with heart failure and stage 1 through stage 4 chronic kidney disease, or unspecified chronic kidney disease; N18.4 Chronic kidney disease, stage 4 (severe); I50.21 Acute systolic (congestive) heart failure; Z79.84 Long term (current) use of oral hypoglycemic drugs; E11.21 Type 2 diabetes mellitus with diabetic nephropathy; R80.9 Proteinuria, unspecified; Z87.440 Personal history of urinary (tract) infections; Z79.2 Long term (current) use of antibiotics; R31.9 Hematuria, unspecified; K21.9 Gastro-esophageal reflux disease without esophagitis ==

== ENCOUNTER 2021-12-15 11:30 | Outpatient (CLI) | payer MEDICARE, OTHER | END 2021-12-15 23:59 | disposition home or self-care (01) | LOC: MSC 11:30 | PROVIDERS: ATTEND Internal Medicine | DX: J06.9 Acute upper respiratory infection, unspecified (principal); R51.9 Headache, unspecified; R25.2 Cramp and spasm; R07.9 Chest pain, unspecified; M54.9 Dorsalgia, unspecified; E11.22 Type 2 diabetes mellitus with diabetic chronic kidney disease; I13.0 Hypertensive heart and chronic kidney disease with heart failure and stage 1 through stage 4 chronic kidney disease, or unspecified chronic kidney disease; N18.4 Chronic kidney disease, stage 4 (severe); I50.21 Acute systolic (congestive) heart failure; Z79.84 Long term (current) use of oral hypoglycemic drugs; E11.21 Type 2 diabetes mellitus with diabetic nephropathy; R80.9 Proteinuria, unspecified; J30.9 Allergic rhinitis, unspecified; Z87.440 Personal history of urinary (tract) infections; Z79.2 Long term (current) use of antibiotics; R31.9 Hematuria, unspecified; K21.9 Gastro-esophageal reflux disease without esophagitis ==

== ENCOUNTER 2021-12-22 11:06 | Outpatient (CLI) | payer MEDICARE, OTHER ==
[2021-12-22 13:00] LABS: ALBUMIN 3.2 g/dL (3.4-5.0); BILIRUBIN,TOTAL 0.9 mg/dL (0.2-1.0); CALCIUM, SERUM 8.5 mg/dL (8.5-10.1); CREATININE 1.8 mg/dL (0.6-1.3); MAGNESIUM 2.1 mg/dL (1.8-2.4); POTASSIUM 3.8 mmol/L (3.5-5.1); TOTAL PROTEIN, SERUM 7.9 g/dL (6.4-8.2)
== END 2021-12-22 23:59 | disposition home or self-care (01) ==
LOC: LAB 11:06
PROVIDERS: ATTEND Internal Medicine Interventional Cardiology
DX: I10 Essential (primary) hypertension (principal); E61.2 Magnesium deficiency
CPT/HCPCS: 36415; 80053-TC; 83735-TC

== ENCOUNTER → 2022-02-23 | Outpatient (CLI) | payer MEDICARE, OTHER | END | disposition home or self-care (01) | LOC: MSC 14:00 | PROVIDERS: ATTEND Internal Medicine | DX: J30.9 Allergic rhinitis, unspecified (principal); J06.9 Acute upper respiratory infection, unspecified; R25.2 Cramp and spasm; R07.9 Chest pain, unspecified; M54.9 Dorsalgia, unspecified; E11.22 Type 2 diabetes mellitus with diabetic chronic kidney disease; I13.0 Hypertensive heart and chronic kidney disease with heart failure and stage 1 through stage 4 chronic kidney disease, or unspecified chronic kidney disease; N18.4 Chronic kidney disease, stage 4 (severe); I50.21 Acute systolic (congestive) heart failure; Z79.84 Long term (current) use of oral hypoglycemic drugs; E11.21 Type 2 diabetes mellitus with diabetic nephropathy; R80.9 Proteinuria, unspecified; Z87.440 Personal history of urinary (tract) infections; Z79.2 Long term (current) use of antibiotics; R31.9 Hematuria, unspecified; M62.81 Muscle weakness (generalized); K21.9 Gastro-esophageal reflux disease without esophagitis ==

== ENCOUNTER → 2022-03-09 | Outpatient (CLI) | payer MEDICARE, OTHER | END | disposition home or self-care (01) | LOC: MSC 11:45 | PROVIDERS: ATTEND Internal Medicine | DX: J30.9 Allergic rhinitis, unspecified (principal); K21.9 Gastro-esophageal reflux disease without esophagitis; J06.9 Acute upper respiratory infection, unspecified; R51.9 Headache, unspecified; R25.2 Cramp and spasm; R07.9 Chest pain, unspecified; R05.9 Cough, unspecified; M54.9 Dorsalgia, unspecified; E11.22 Type 2 diabetes mellitus with diabetic chronic kidney disease; I13.0 Hypertensive heart and chronic kidney disease with heart failure and stage 1 through stage 4 chronic kidney disease, or unspecified chronic kidney disease; N18.4 Chronic kidney disease, stage 4 (severe); I50.21 Acute systolic (congestive) heart failure; Z79.84 Long term (current) use of oral hypoglycemic drugs; E11.21 Type 2 diabetes mellitus with diabetic nephropathy; R80.9 Proteinuria, unspecified; Z87.440 Personal history of urinary (tract) infections; R31.9 Hematuria, unspecified; Z79.899 Other long term (current) drug therapy ==

== ENCOUNTER 2022-06-09 13:15 | Outpatient (CLI) | payer MEDICARE, OTHER | END 2022-06-09 23:59 | disposition home or self-care (01) | LOC: MSC 13:15 | PROVIDERS: ATTEND Internal Medicine | DX: J40 Bronchitis, not specified as acute or chronic (principal); J30.9 Allergic rhinitis, unspecified; K21.9 Gastro-esophageal reflux disease without esophagitis; R25.2 Cramp and spasm; M54.9 Dorsalgia, unspecified; E11.22 Type 2 diabetes mellitus with diabetic chronic kidney disease; I13.0 Hypertensive heart and chronic kidney disease with heart failure and stage 1 through stage 4 chronic kidney disease, or unspecified chronic kidney disease; N18.4 Chronic kidney disease, stage 4 (severe); I50.21 Acute systolic (congestive) heart failure; Z79.84 Long term (current) use of oral hypoglycemic drugs; E11.21 Type 2 diabetes mellitus with diabetic nephropathy; R80.9 Proteinuria, unspecified; Z87.440 Personal history of urinary (tract) infections; R31.9 Hematuria, unspecified; Z79.899 Other long term (current) drug therapy ==

== ENCOUNTER 2022-06-10 11:11 | Outpatient (CLI) | payer MEDICARE, OTHER | END 2022-06-10 23:59 | disposition home or self-care (01) | LOC: CT 11:11 | PROVIDERS: ATTEND Internal Medicine | DX: I51.7 Cardiomegaly (principal); I34.0 Nonrheumatic mitral (valve) insufficiency; J90 Pleural effusion, not elsewhere classified; J81.1 Chronic pulmonary edema; I25.10 Atherosclerotic heart disease of native coronary artery without angina pectoris; R06.02 Shortness of breath; I50.9 Heart failure, unspecified | CPT/HCPCS: 71250-TC ==

== ENCOUNTER → 2022-06-11 | Outpatient (CLI) | payer MEDICARE, OTHER | END | disposition home or self-care (01) | LOC: MSC 14:15 | PROVIDERS: ATTEND Internal Medicine | DX: R93.89 Abnormal findings on diagnostic imaging of other specified body structures (principal); E11.22 Type 2 diabetes mellitus with diabetic chronic kidney disease; I13.0 Hypertensive heart and chronic kidney disease with heart failure and stage 1 through stage 4 chronic kidney disease, or unspecified chronic kidney disease; N18.4 Chronic kidney disease, stage 4 (severe); I50.23 Acute on chronic systolic (congestive) heart failure; Z79.84 Long term (current) use of oral hypoglycemic drugs; E11.21 Type 2 diabetes mellitus with diabetic nephropathy; R80.9 Proteinuria, unspecified; J40 Bronchitis, not specified as acute or chronic; J30.9 Allergic rhinitis, unspecified; K21.9 Gastro-esophageal reflux disease without esophagitis; R51.9 Headache, unspecified; R25.2 Cramp and spasm; M54.9 Dorsalgia, unspecified; Z87.440 Personal history of urinary (tract) infections; R31.9 Hematuria, unspecified; Z79.899 Other long term (current) drug therapy ==

== ENCOUNTER → 2022-09-02 | Outpatient (CLI) | payer MEDICARE, OTHER | END | disposition home or self-care (01) | LOC: MSC 15:30 | PROVIDERS: ATTEND Internal Medicine | DX: R30.0 Dysuria (principal); R35.0 Frequency of micturition; R39.15 Urgency of urination; Z87.440 Personal history of urinary (tract) infections; E11.22 Type 2 diabetes mellitus with diabetic chronic kidney disease; I13.0 Hypertensive heart and chronic kidney disease with heart failure and stage 1 through stage 4 chronic kidney disease, or unspecified chronic kidney disease; N18.4 Chronic kidney disease, stage 4 (severe); I50.23 Acute on chronic systolic (congestive) heart failure; Z79.84 Long term (current) use of oral hypoglycemic drugs; E11.21 Type 2 diabetes mellitus with diabetic nephropathy; K21.9 Gastro-esophageal reflux disease without esophagitis; R51.9 Headache, unspecified; R25.2 Cramp and spasm; R05.9 Cough, unspecified; M54.9 Dorsalgia, unspecified; R31.9 Hematuria, unspecified; Z79.899 Other long term (current) drug therapy ==

== ENCOUNTER → 2022-09-08 | Outpatient (CLI) | payer MEDICARE, OTHER | END | disposition home or self-care (01) | LOC: MSC 14:00 | PROVIDERS: ATTEND Internal Medicine | DX: E11.22 Type 2 diabetes mellitus with diabetic chronic kidney disease (principal); I13.0 Hypertensive heart and chronic kidney disease with heart failure and stage 1 through stage 4 chronic kidney disease, or unspecified chronic kidney disease; N18.4 Chronic kidney disease, stage 4 (severe); I50.23 Acute on chronic systolic (congestive) heart failure; Z79.84 Long term (current) use of oral hypoglycemic drugs; E11.21 Type 2 diabetes mellitus with diabetic nephropathy; R30.0 Dysuria; Z87.440 Personal history of urinary (tract) infections; G47.00 Insomnia, unspecified; K21.9 Gastro-esophageal reflux disease without esophagitis; R25.2 Cramp and spasm; R51.9 Headache, unspecified; R05.9 Cough, unspecified; M54.9 Dorsalgia, unspecified; R31.9 Hematuria, unspecified; Z79.899 Other long term (current) drug therapy ==

== ENCOUNTER 2022-09-23 09:00 | Outpatient (CLI) | payer MEDICARE, OTHER | END 2022-09-23 23:59 | disposition home or self-care (01) | LOC: MSC 09:00 | PROVIDERS: ATTEND Internal Medicine | DX: K21.9 Gastro-esophageal reflux disease without esophagitis (principal); R06.2 Wheezing; E11.22 Type 2 diabetes mellitus with diabetic chronic kidney disease; I13.0 Hypertensive heart and chronic kidney disease with heart failure and stage 1 through stage 4 chronic kidney disease, or unspecified chronic kidney disease; N18.4 Chronic kidney disease, stage 4 (severe); I50.9 Heart failure, unspecified; N17.9 Acute kidney failure, unspecified; Z79.84 Long term (current) use of oral hypoglycemic drugs; E11.21 Type 2 diabetes mellitus with diabetic nephropathy; R30.0 Dysuria; Z87.440 Personal history of urinary (tract) infections; G47.00 Insomnia, unspecified; R51.9 Headache, unspecified; R05.9 Cough, unspecified; M54.9 Dorsalgia, unspecified; R31.9 Hematuria, unspecified; Z79.899 Other long term (current) drug therapy ==

== ENCOUNTER → 2022-10-07 | Outpatient (CLI) | payer MEDICARE, OTHER | END | disposition home or self-care (01) | LOC: MSC 14:30 | PROVIDERS: ATTEND Internal Medicine | DX: G47.00 Insomnia, unspecified (principal); K21.9 Gastro-esophageal reflux disease without esophagitis; E11.22 Type 2 diabetes mellitus with diabetic chronic kidney disease; I13.0 Hypertensive heart and chronic kidney disease with heart failure and stage 1 through stage 4 chronic kidney disease, or unspecified chronic kidney disease; N18.4 Chronic kidney disease, stage 4 (severe); I50.9 Heart failure, unspecified; N17.9 Acute kidney failure, unspecified; Z79.84 Long term (current) use of oral hypoglycemic drugs; E11.21 Type 2 diabetes mellitus with diabetic nephropathy; R06.2 Wheezing; R30.0 Dysuria; Z87.440 Personal history of urinary (tract) infections; R51.9 Headache, unspecified; R05.9 Cough, unspecified; M54.9 Dorsalgia, unspecified; R31.9 Hematuria, unspecified; Z79.899 Other long term (current) drug therapy ==

== ENCOUNTER → 2022-10-18 | Outpatient (CLI) | payer MEDICARE, OTHER | END | disposition home or self-care (01) | LOC: MSC 13:00 | PROVIDERS: ATTEND Internal Medicine | DX: E11.22 Type 2 diabetes mellitus with diabetic chronic kidney disease (principal); I13.0 Hypertensive heart and chronic kidney disease with heart failure and stage 1 through stage 4 chronic kidney disease, or unspecified chronic kidney disease; N18.4 Chronic kidney disease, stage 4 (severe); I50.89 Other heart failure; N17.9 Acute kidney failure, unspecified; Z79.84 Long term (current) use of oral hypoglycemic drugs; E11.21 Type 2 diabetes mellitus with diabetic nephropathy; G47.00 Insomnia, unspecified; K21.9 Gastro-esophageal reflux disease without esophagitis; R06.2 Wheezing; Z87.09 Personal history of other diseases of the respiratory system; R30.0 Dysuria; R51.9 Headache, unspecified; M79.669 Pain in unspecified lower leg; R05.9 Cough, unspecified; M54.9 Dorsalgia, unspecified; R31.9 Hematuria, unspecified; Z79.899 Other long term (current) drug therapy ==

== ENCOUNTER 2023-01-13 09:00 | Outpatient (CLI) | payer MEDICARE, OTHER | END 2023-01-13 23:59 | disposition home or self-care (01) | LOC: MSC 09:00 | PROVIDERS: ATTEND Internal Medicine | DX: R05.9 Cough, unspecified (principal); R06.2 Wheezing; R30.0 Dysuria; E11.22 Type 2 diabetes mellitus with diabetic chronic kidney disease; I13.0 Hypertensive heart and chronic kidney disease with heart failure and stage 1 through stage 4 chronic kidney disease, or unspecified chronic kidney disease; N18.4 Chronic kidney disease, stage 4 (severe); I50.89 Other heart failure; Z79.84 Long term (current) use of oral hypoglycemic drugs; E11.21 Type 2 diabetes mellitus with diabetic nephropathy; G47.00 Insomnia, unspecified; K21.9 Gastro-esophageal reflux disease without esophagitis; Z87.09 Personal history of other diseases of the respiratory system; R51.9 Headache, unspecified; M79.669 Pain in unspecified lower leg; M54.9 Dorsalgia, unspecified; R31.9 Hematuria, unspecified; Z79.899 Other long term (current) drug therapy ==

== ENCOUNTER 2023-01-20 10:45 | Outpatient (CLI) | payer MEDICARE, OTHER | END 2023-01-20 23:59 | disposition home or self-care (01) | LOC: MSC 10:45 | PROVIDERS: ATTEND Internal Medicine | DX: R05.9 Cough, unspecified (principal); R30.0 Dysuria; E11.22 Type 2 diabetes mellitus with diabetic chronic kidney disease; I13.0 Hypertensive heart and chronic kidney disease with heart failure and stage 1 through stage 4 chronic kidney disease, or unspecified chronic kidney disease; N18.4 Chronic kidney disease, stage 4 (severe); I50.89 Other heart failure; Z79.84 Long term (current) use of oral hypoglycemic drugs; E11.21 Type 2 diabetes mellitus with diabetic nephropathy; G47.00 Insomnia, unspecified; K21.9 Gastro-esophageal reflux disease without esophagitis; R06.2 Wheezing; Z87.09 Personal history of other diseases of the respiratory system; R51.9 Headache, unspecified; M79.669 Pain in unspecified lower leg; M54.9 Dorsalgia, unspecified; R31.9 Hematuria, unspecified ==

== ENCOUNTER → 2023-01-25 | Outpatient (CLI) | payer MEDICARE, OTHER | END | disposition home or self-care (01) | LOC: MSC 14:00 | PROVIDERS: ATTEND Internal Medicine | DX: R05.9 Cough, unspecified (principal); R30.0 Dysuria; E11.22 Type 2 diabetes mellitus with diabetic chronic kidney disease; I13.0 Hypertensive heart and chronic kidney disease with heart failure and stage 1 through stage 4 chronic kidney disease, or unspecified chronic kidney disease; N18.4 Chronic kidney disease, stage 4 (severe); I50.89 Other heart failure; N17.9 Acute kidney failure, unspecified; Z79.84 Long term (current) use of oral hypoglycemic drugs; E11.21 Type 2 diabetes mellitus with diabetic nephropathy; G47.00 Insomnia, unspecified; K21.9 Gastro-esophageal reflux disease without esophagitis; R06.2 Wheezing; Z87.09 Personal history of other diseases of the respiratory system; R51.9 Headache, unspecified; M79.669 Pain in unspecified lower leg; M54.9 Dorsalgia, unspecified; R31.9 Hematuria, unspecified ==

== ENCOUNTER → 2023-02-04 | Outpatient (CLI) | payer MEDICARE, OTHER | END | disposition home or self-care (01) | LOC: MSC 15:00 | PROVIDERS: ATTEND Internal Medicine | DX: R05.9 Cough, unspecified (principal); R30.0 Dysuria; E11.22 Type 2 diabetes mellitus with diabetic chronic kidney disease; I13.0 Hypertensive heart and chronic kidney disease with heart failure and stage 1 through stage 4 chronic kidney disease, or unspecified chronic kidney disease; N18.4 Chronic kidney disease, stage 4 (severe); I50.89 Other heart failure; N17.9 Acute kidney failure, unspecified; Z79.84 Long term (current) use of oral hypoglycemic drugs; E11.21 Type 2 diabetes mellitus with diabetic nephropathy; G47.00 Insomnia, unspecified; K21.9 Gastro-esophageal reflux disease without esophagitis; R06.2 Wheezing; Z87.09 Personal history of other diseases of the respiratory system; R51.9 Headache, unspecified; M79.669 Pain in unspecified lower leg; R25.2 Cramp and spasm; M54.9 Dorsalgia, unspecified; R31.9 Hematuria, unspecified ==

== ENCOUNTER 2023-02-10 20:56 | Inpatient (IN) | payer MEDICARE, BC ==
[~2023-02-10] VITALS: Ht 156.2 cm; Wt 59.4 kg
[~2023-02-10 20:56] MED LIST changes: -ASPI-1169 PO; -CARV6.25 PO; -CEPH500C2 PO; -CLOP75TA15 PO; -ISOS60TA72 PO
--- NOTE | 2023-02-10 21:39 | NUR ---
BIBDAUGHTER C/O LOWER EXT EDEMA. SENT BY MD TO RECIEVE A CT DUE TO HEADACHE. A/OX3; WOLOF SPEAKING. TOLERATING R/A WELL WITH NO RESP DISTRESS. SAFETY MEASURES IN PLACE.
[2023-02-10] MEDS ORDERED: BUMETANIDE INJ 0.25 MG/ML VIAL IV ONE (22:30)
--- NOTE | 2023-02-10 22:31 | NUR ---
RAC #18G S/L BLOOD COLLECTED AND SENT TO LAB
[2023-02-10 23:19] LABS: CALCIUM, SERUM 9.5 mg/dL (8.5-10.1); CARBON DIOXIDE 29 mmol/L (21-32); CHLORIDE 99 mmol/L (98-107); CREATININE 2.4 mg/dL (0.6-1.3); GLUCOSE 205 mg/dL (74-106); POTASSIUM 3.1 mmol/L (3.5-5.1); SODIUM SERUM 140 mmol/L (136-145); UREA NITROGEN, BLOOD 77 mg/dL (7-18)
--- NOTE | 2023-02-10 23:31 | NUR ---
CRITICAL RESULT TROPONIN 1008; DR LAW HARE AWARE Addendum: 02/10/23 at 2332 by JISIP CRITICAL RESULT TROPONIN 1088; DR LAW HARE AWARE
[2023-02-10 23:39] LABS: ALANINE AMINOTRANSFERASE 13 U/L (12-78); ALBUMIN 3.8 g/dL (3.4-5.0); ALKALINE PHOSPHATASE 93 U/L (46-116); ASPARTATE AMINOTRANSFERASE 28 U/L (15-37); BILIRUBIN,DIRECT 1.1 mg/dL (0.0-0.2); BILIRUBIN,TOTAL 2.1 mg/dL (0.2-1.0)
[2023-02-10 23:40] LABS: BASOPHILS % (AUTO) 0.3 % (0.0-2.0); EOSINOPHILS % (AUTO) 0.3 % (0.0-6.0); HEMATOCRIT 44 % (33-45); HEMOGLOBIN 14.4 g/dL (11.5-14.8); LYMPHOCYTES # (AUTO) 0.8 K/uL (0.8-4.8); LYMPHOCYTES % (AUTO) 9.5 % (20.0-44.0); MEAN CORPUSCULAR HGB CONC 32 g/dl (31.0-36.0); MEAN CORPUSCULAR VOLUME 91 fL (82-100); MONOCYTES # (AUTO) 0.7 K/uL (0.1-1.30); MONOCYTES % (AUTO) 8.6 % (2.0-12.0); NEUTROPHILS # (AUTO) 6.5 K/uL (1.8-8.9); NEUTROPHILS % (AUTO) 81.3 % (43.0-81.0); PLATELET COUNT (AUTO) 193 K/uL (150-450); RED BLOOD CELL COUNT(AUTO) 4.86 MIL/uL (4.0-5.2); WHITE BLOOD COUNT (AUTO) 8.1 K/uL (4.3-11.0)
[2023-02-11] MEDS ORDERED: Z GUARD REMEDY 4 OZ OINT TP PRN
[2023-02-11] MEDS ORDERED: ZOLPIDEM TARTRATE 5 MG TABLET PO PRN
[2023-02-11] MEDS ORDERED: MAG HYDROX/AL HYDROX/SIMETH 30 ML UDC PO PRN
[2023-02-11] MEDS ORDERED: MAGNESIUM HYDROXIDE 30 ML UDC PO PRN
[2023-02-11] MEDS ORDERED: DEXTROSE 50%-WATER 50 ML DISP.SYRIN IV PRN
[2023-02-11] MEDS ORDERED: ONDANSETRON HCL/PF 4 MG/2 ML VIAL IVP PRN
--- NOTE | 2023-02-11 00:04 | NUR ---
VALERIA VIEYRA GAS METER REPAIRER AT PT'S BEDSIDE FOR EVAL
--- NOTE | 2023-02-11 00:18 | NUR ---
ELECTRICIAN RECTIFIER MAINTENANCE AT PT'S BEDSIDE FOR EVAL
--- NOTE | 2023-02-11 00:25 | NUR ---
REPORT GIVEN TO STANTON VILLALOBOS RN FOR CT
--- NOTE | 2023-02-11 00:37 | NUR ---
PT REFUSED CT X2; KEMaya GSA COORDINATOR AWARE.
[2023-02-11] MEDS ORDERED: ALBUTEROL FS 2.5 MG/3 ML VIAL.NEB NEB PRN (01:00)
[2023-02-11] MEDS ORDERED: CEFTRIAXONE 1GM BAG (ER ONLY) 50 ML IV ONE (01:13)
[2023-02-11] MEDS: CEFTRIAXONE 1 G in IV D5W 50 ML IV SCH ×2 (01:17→20:32)
[2023-02-11] MEDS ORDERED: ASPIRIN 81 MG TAB.CHEW PO ONE (01:30)
--- NOTE | 2023-02-11 01:30 | NUR ---
WELDER APPRENTICE GAS ADMITTING NOTE PATIENT WAS TRANSFERRED FROM ER TO [facility] RM 116 - 2 AT 0115H; PATIENT IS A/O X 4, SERBIAN SPEAKING BUT ABLE TO UNDERSTAND LITTLE TURKISH, ABLE TO MAKE NEEDS KNOWN; STABLE ON ROOM AIR TOLERATING WELL AND NO S/S OF RESPIRATORY DISTRESS NOTED; WITH IV ACCESS ON RIGHT AC G# 18 RUNNING WITH CEFTRIAXONE VIA GRAVITY; HOOKED TO MOTOR TUNE UP SPECIALIST CURRENTLY READING SINUS RHYTHM; ORIENTED TO STAFF AND ROOM; VITAL SIGNS TAKEN AND RECORDED; ASSISTED IN POSITION OF COMFORT; SAFETY MEASURES IMPLEMENTED, BED IN LOW AND LOCKED POSITION, SIDE RAILS UP X 2, CALL LIGHT AND TABLE WITHIN REACH; WILL CONTINUE TO MONITOR THROUGHOUT SHIFT
--- NOTE | 2023-02-11 01:33 | NUR ---
PT TRANSFERRED TO [facility] VIA ACLS PROTOCOL. ALL BELONGINGS WITH PT. MITESH VELÁSQUEZ AWARE. VSS.
[2023-02-11 04:00] VITALS: BP 125/75
[2023-02-11 06:19] LABS: BASOPHILS % (AUTO) 0.3 % (0.0-2.0); EOSINOPHILS % (AUTO) 0.2 % (0.0-6.0); HEMATOCRIT 42 % (33-45); HEMOGLOBIN 13.3 g/dL (11.5-14.8); LYMPHOCYTES # (AUTO) 0.8 K/uL (0.8-4.8); MEAN CORPUSCULAR HGB CONC 32 g/dl (31.0-36.0); MEAN CORPUSCULAR VOLUME 92 fL (82-100); MONOCYTES # (AUTO) 0.7 K/uL (0.1-1.30); MONOCYTES % (AUTO) 9.8 % (2.0-12.0); NEUTROPHILS # (AUTO) 5.3 K/uL (1.8-8.9); NEUTROPHILS % (AUTO) 77.7 % (43.0-81.0); PLATELET COUNT (AUTO) 185 K/uL (150-450); RED BLOOD CELL COUNT(AUTO) 4.55 MIL/uL (4.0-5.2); WHITE BLOOD COUNT (AUTO) 6.8 K/uL (4.3-11.0)
[2023-02-11] MEDS: BLOOD SUGAR DIAGNOSTIC 1 EACH STRIP IN SCH ×4 (06:34→21:44)
[2023-02-11] MEDS: INSULIN REGULAR, HUMAN 100 UNIT/ML 3 ML VIAL SQ PRN ×4 (06:39→21:18)
--- NOTE | 2023-02-11 06:55 | NUR ---
DESTATICIZER FEEDER NOTE ACCUCHECK WAS DONE AND PT'S BLOOD SUGAR WAS 143. PATIENT REFUSED TO HAVE 2 UNITS OF REGULAR INSULIN PER SLIDING SCALE.
--- NOTE | 2023-02-11 07:00 | NUR ---
HIDES AND SKINS COLORER OPENING NOTES: RECEIVED PT IN BED LAO SPEAKER, PT A/OX 4 AND ABLE TO MAKE NEEDS KNOWN. NO SOB, ON HAZMAT TANKER DRIVER WITH CURRENT READING OF SR @80S. IV ACCESS ON RAC GAUGE 18,PATENT,INTACT AND SL. SAFETY MEASURES MAINTAINED: BED LOCKED AND IN LOWEST POSITION. SIDE RAILS UP X 2. CALL LIGHT IN EASY REACH FOR HELP. WILL MONITOR PT ACCORDINGLY.
[2023-02-11 07:17] LABS: CALCIUM, SERUM 9.2 mg/dL (8.5-10.1); CARBON DIOXIDE 29 mmol/L (21-32); CHLORIDE 99 mmol/L (98-107); CREATININE 2.1 mg/dL (0.6-1.3); GLUCOSE 151 mg/dL (74-106); PHOSPHORUS 3.9 mg/dL (2.5-4.9); POTASSIUM 3.1 mmol/L (3.5-5.1); SODIUM SERUM 141 mmol/L (136-145); UREA NITROGEN, BLOOD 78 mg/dL (7-18)
--- NOTE | 2023-02-11 07:18 | NUR ---
ESTIMATOR PRINTING CLOSING NOTE PATIENT IS A/O X 4, CHINESE SPEAKING BUT ABLE TO UNDERSTAND LITTLE SERBIAN, ABLE TO MAKE NEEDS KNOWN; STABLE ON ROOM AIR TOLERATING WELL AND NO S/S OF RESPIRATORY DISTRESS NOTED; WITH IV ACCESS ON RIGHT AC G# 18 SALINE LOCK; HOOKED TO REEL SYSTEM OPERATOR CURRENTLY READING SINUS RHYTHM; ASSISTED IN POSITION OF COMFORT; ADMINISTERED MEDICATIONS PRESCRIBED; PATIENT'S NEEDS ATTENDED; SAFETY MEASURES IMPLEMENTED, BED IN LOW AND LOCKED POSITION, SIDE RAILS UP X 2, CALL LIGHT AND TABLE WITHIN REACH; WILL ENDORSE TO AM NURSE FOR ANTOINETTE.
[2023-02-11] MEDS ORDERED: PANTOPRAZOLE 40 MG TABLET.DR PO SCH (07:30)
--- NOTE | 2023-02-11 07:36 | NUR ---
RN NOTES RECEIVED CALL FROM [facility] (LAB) TROP LEVEL IS 1056, TRENDING DOWN. MADE AWARE.
[2023-02-11 08:00] VITALS: BP 120/79
[2023-02-11] MEDS ORDERED: HEPARIN INFUSION/D5W 500 ML IV PRN (08:00)
[2023-02-11] MEDS ORDERED: POTASSIUM CHLORIDE 20 MEQ TAB.PRT.SR PO ONE (08:00)
[2023-02-11] MEDS ORDERED: Medication Not On Formulary EA (Omega-3 Fatty Acids (Fish Oil) 500 MG) PO SCH (09:00)
[2023-02-11] MEDS ORDERED: SITAGLIPTIN PHOSPHATE 50 MG TABLET PO SCH (09:00)
[2023-02-11] MEDS ORDERED: APIXABAN 2.5 MG TABLET PO SCH ×2 (09:00→21:00)
[2023-02-11] MEDS: MULTIVITAMINS,THERAGRAN 1 UDTAB TABLET PO SCH (09:02)
[2023-02-11] MEDS: FERROUS SULFATE (325 MG) 325 MG/TAB TABLET PO SCH ×2 (09:02→16:47)
--- NOTE | 2023-02-11 09:03 | NUR ---
RN NOTES: INFORMED DR CRUZ ABOUT THE ELIQUIS DUE IN AM SHE SAID HOLD FOR NOW. INFORMED MD THAT PT HAS ALLERGY ON PROTONIX, MD ORDERED DC PROTONIX. PT FOR UA AND C&S. ALL ORDERS NOTED AND CARRIED OUT.
--- NOTE | 2023-02-11 10:03 | NUR ---
RN NOTES: PT REFUSED BRAIN CT SCAN. INFORMED COMPLIANCE COUNSEL ANTHONY STATED "OKAY, THANK YOU"
[2023-02-11 10:51] LABS: CHOLESTEROL 119 mg/dL (<200); HDL CHOLESTEROL 33 mg/dL (40-60); LDL 87 mg/dL (0-99); TRIGLYCERIDES 76 mg/dL (30-150)
[2023-02-11] MEDS ORDERED: HEPARIN SODIUM, PORCINE 5000 UNITS/1 ML VIAL IV ONE (11:00)
[2023-02-11 12:00] VITALS: BP 113/68
--- NOTE | 2023-02-11 12:00 | NUR ---
RN NOTES: INSERTED IV ACCESS ON LFA GAUGE 22, PATENT, INTACT AND SL.
[2023-02-11 16:00] VITALS: BP 130/76
[2023-02-11] MEDS: MONTELUKAST SODIUM (10MG) 10 MG TABLET PO SCH (17:19)
--- NOTE | 2023-02-11 17:20 | NUR ---
RN NOTES PT REFUSED TO CONTINUE HEPARIN DRIP, INFORMED DR CRUZ AND SHE SAID DC HEPARIN DRIP, SHE ORDERED BLOOD CULTURE AND FOLLOW UP URINE CULTURE AND SENSITIVITY. ORDERS NOTED AND CARRIED OUT.
--- NOTE | 2023-02-11 18:21 | NUR ---
RN NOTES: INFORMED STOVE MOUNTER ANTHONY WHATSS THE ALTERNATIVE FOR HEPARIN DRIP, ORDERED HEPARIN SQ Q 12HRS. ORDERS NOTED AND CARRIED OUT.
[2023-02-11 18:47] LABS: BILIRUBIN,URINE NEGATIVE (NEGATIVE); COLOR,URINE YELLOW (YELLOW); LEUKOCYTE ESTERASE ,URINE 1+ (NEGATIVE); NITRITE, URINE NEGATIVE (NEGATIVE); PROTEIN,URINE 2+ mg/dl (NEGATIVE); UGLUCOSE NEGATIVE (NEGATIVE); UROBILINOGEN,URINE 0.2 EU/dL (0.2)
--- NOTE | 2023-02-11 19:31 | NUR ---
LAPEL BASTER CLOSING NOTES: PT IN BED HEBREW SPEAKER, PT A/OX 4 AND ABLE TO MAKE NEEDS KNOWN. NO SOB, ON COMMUNITY HEALTH ADVISOR WITH CURRENT READING OF SR @82S. IV ACCESS ON RAC GAUGE 18,LFA GAUGE 22 PATENT,INTACT AND SL. SAFETY MEASURES MAINTAINED: BED LOCKED AND IN LOWEST POSITION. SIDE RAILS UP X 2. CALL LIGHT IN EASY REACH FOR HELP. WILL MONITOR PT ACCORDINGLY. ENDORSED TO NOC SHIFT FOR ANTOINETTE.
[2023-02-11 19:43] LABS: BACTERIA,URINE Few /HPF (None Seen); SQUAMOUS EPITHELIAL CELL,UR Few /HPF (None Seen)
--- NOTE | 2023-02-11 20:11 | NUR ---
RECEIVED PATIENT UP IN CHAIR, ALERT/ORIENTED X4, [place] SPEAKING ONLY, ROOM AIR, NO COMPLAIN OF PAIN. HARD OF HEARING, RIGHT EAR HEARING AID, SR ON THE TELE, KEPT SAFE, WILL CONTINUE TO MONITOR.
[2023-02-11 21:00] VITALS: BP 128/71
[2023-02-11] MEDS: HEPARIN SODIUM, PORCINE 5000 UNITS/1 ML VIAL SQ SCH ×2 (21:00→21:05)
--- NOTE | 2023-02-11 21:19 | NUR ---
PATIENT REFUSED HEPARIN AND INSULIN, BG 254. EDUCATED PATIENT AND DAUGHTER, MITESH REGARDING RISK AND BENEFITS, PATIENT STILL REFUSED.
[2023-02-11] MEDS: ATORVASTATIN 10 MG TABLET PO SCH (21:44)
[2023-02-12] VITALS: BP 117/65
[2023-02-12 04:00] VITALS: BP 126/96
[2023-02-12 06:33] LABS: BASOPHILS % (AUTO) 0.4 % (0.0-2.0); EOSINOPHILS % (AUTO) 1.1 % (0.0-6.0); HEMATOCRIT 40 % (33-45); HEMOGLOBIN 13.2 g/dL (11.5-14.8); LYMPHOCYTES # (AUTO) 0.9 K/uL (0.8-4.8); LYMPHOCYTES % (AUTO) 14.7 % (20.0-44.0); MEAN CORPUSCULAR HGB CONC 33 g/dl (31.0-36.0); MEAN CORPUSCULAR VOLUME 91 fL (82-100); MONOCYTES # (AUTO) 0.7 K/uL (0.1-1.30); MONOCYTES % (AUTO) 10.7 % (2.0-12.0); NEUTROPHILS # (AUTO) 4.5 K/uL (1.8-8.9); NEUTROPHILS % (AUTO) 73.1 % (43.0-81.0); PLATELET COUNT (AUTO) 195 K/uL (150-450); RED BLOOD CELL COUNT(AUTO) 4.43 MIL/uL (4.0-5.2); WHITE BLOOD COUNT (AUTO) 6.2 K/uL (4.3-11.0)
--- NOTE | 2023-02-12 06:44 | NUR ---
CHF EXACERBATION, ROOM AIR, SPO2 90-92%, NO COMPLAIN OF PAIN, RIGHT EAR HEARING AID, DYSPNEA ON EXERTION, BEDREST, BSC. CONTINENT OF URINE, URINARY URGENCY AND FREQUENCY DUE TO UTI. SINUS RHYTHM ON THE TELE, S/P HEPARIN DRIP, ON HEPARIN SQ. ACCUCHECK AND SLIDING SCALE. NON COMPLIANT, REFUSING HEPARIN AND INSULIN, EDUCATED PATIENT AND DAUGHTER REGARDING RISKS AND BENEFITS. CONTINUE ISOSORBIDE, CHANDLER INHIBITOR HELD DUE TO RENAL FAILURE. NO EVIDENCE OF PNA, POSSIBLE THORACENTESIS.
--- NOTE | 2023-02-12 07:06 | NUR ---
PTT 40.9, PER HEPARIN ACS PROTOCOL, INCREASE BY 100 UNITS/HR, PTT AT 1300 Addendum: 02/12/23 at 0718 by LUIS PRADO RN DISREGARD ABOVE NOTES, ERRONEOUS ENTRY.
[2023-02-12 07:26] LABS: CALCIUM, SERUM 8.9 mg/dL (8.5-10.1); CARBON DIOXIDE 30 mmol/L (21-32); CHLORIDE 98 mmol/L (98-107); CREATININE 2.2 mg/dL (0.6-1.3); GLUCOSE 143 mg/dL (74-106); MAGNESIUM 1.9 mg/dL (1.8-2.4); PHOSPHORUS 3.6 mg/dL (2.5-4.9); SODIUM SERUM 138 mmol/L (136-145)
[2023-02-12 07:27] LABS: UREA NITROGEN, BLOOD 84 mg/dL (7-18)
--- NOTE | 2023-02-12 07:30 | NUR ---
OPENING NOTE: RECEIVED PATIENT IN BED AWAKE, ALERT, ORIENTED X3, LAO SPEAKING ONLY, NO SIGNS OF IN DISTRESS,UNLABORED BREATHING ON ROOM AIR, NO COMPLAINT OF PAIN, SAFETY MEASURES APPLIED, BED IN LOW POSITION LOCKED, SIDE RAILS UPX3, CALL LIGHT WITHIN REACH
[2023-02-12] MEDS: BLOOD SUGAR DIAGNOSTIC 1 EACH STRIP IN SCH ×4 (07:45→21:49)
[2023-02-12 08:00] VITALS: BP 130/73
[2023-02-12] MEDS: MULTIVITAMINS,THERAGRAN 1 UDTAB TABLET PO SCH (09:03)
[2023-02-12] MEDS: FERROUS SULFATE (325 MG) 325 MG/TAB TABLET PO SCH ×2 (09:03→16:13)
[2023-02-12] MEDS: HEPARIN SODIUM, PORCINE 5000 UNITS/1 ML VIAL SQ SCH ×2 (09:05→20:46)
--- NOTE | 2023-02-12 10:50 | NUR ---
INFORMED DR GUTIERREZ RE: K-3.0 TODAY
[2023-02-12] MEDS ORDERED: PHENAZOPYRIDINE HCL 200 MG TABLET PO PRN (11:00)
--- NOTE | 2023-02-12 11:11 | NUR ---
PATIENT REFUSED TO CHECK BLOOD GLUCOSE , DAUGHTER IS AT BEDSIDE.
--- NOTE | 2023-02-12 11:48 | NUR ---
PATIENT DECIDED TO CHECK BLOOD SUGAR, 245, REFUSED INSULIN TO BE GIVEN, DAUGHTER IS AT BEDSIDE
[2023-02-12 12:00] VITALS: BP 115/72
[2023-02-12] MEDS ORDERED: POTASSIUM CHLORIDE 20 MEQ TAB.PRT.SR PO ONE (12:00)
[2023-02-12 16:00] VITALS: BP 129/81
--- NOTE | 2023-02-12 16:51 | NUR ---
BLOOD SUGAR IS 260, PATIENT REFUSED INSULIN, DAUGHTER MITESH IS AT BEDSIDE.
[2023-02-12] MEDS: MONTELUKAST SODIUM (10MG) 10 MG TABLET PO SCH (17:16)
--- NOTE | 2023-02-12 18:41 | NUR ---
CLOSING NOTE: PATIENT IS SITTING ON THE SIDE OF THE BED, DAUGHTER IS AT BEDSIDE, NO SIGNS OF IN DISTRESS, NO COMPLAINT OF PAIN, UNLABORED BREATHING ON ROOM AIR, SAFETY MEASURES APPLIED, BED IN LOW POSITION LOCKED, SIDE RAILS UPX3, CALL LIGHT WITHIN REACH
[2023-02-12 20:00] VITALS: BP 129/79
--- NOTE | 2023-02-12 20:00 | NUR ---
OIL WELL LOGGER NOTES OPENING NOTE: RECEIVED PATIENT IN BED AWAKE, ALERT, ORIENTED X3, LITHUANIAN SPEAKING ONLY, NO SIGNS OF IN DISTRESS,UNLABORED BREATHING ON ROOM AIR, NO COMPLAINT OF PAIN,DAUGHTER AT BEDSIDE UPDATED WITH PTS CONDITION. SAFETY MEASURES APPLIED, BED IN LOW POSITION LOCKED, SIDE RAILS UPX3, CALL LIGHT WITHIN REACHWILL CONTINUE TO MONITOR PTS.
[2023-02-12] MEDS ORDERED: CEFTRIAXONE 1 G VIAL ONE (21:02)
[2023-02-12] MEDS: CEFTRIAXONE 1 G in IV D5W 50 ML IV SCH (21:18)
[2023-02-12] MEDS: ATORVASTATIN 10 MG TABLET PO SCH (21:18)
[2023-02-12] MEDS: INSULIN REGULAR, HUMAN 100 UNIT/ML 3 ML VIAL SQ PRN (21:49)
--- NOTE | 2023-02-12 21:52 | NUR ---
telephone ad taker notes pts blood sugar at 10pm is 212mg/dl no coverage given due to pts refusal explain r/b still pts refused meds .
[2023-02-12] MEDS: GUAIFENESIN/D-METHORPHAN HB 5 ML UDC PO PRN (22:07)
[2023-02-13] VITALS: BP 117/79
[2023-02-13 04:00] VITALS: BP 136/79
[2023-02-13] MEDS: ACETAMINOPHEN 325 MG TABLET PO PRN (04:35)
[2023-02-13] MEDS: GUAIFENESIN/D-METHORPHAN HB 5 ML UDC PO PRN ×2 (04:43→21:04)
--- NOTE | 2023-02-13 06:22 | NUR ---
CLOSING NOTE: PATIENT IS SITTING ON THE SIDE OF THE BED, DAUGHTER IS AT BEDSIDE, NO SIGNS OF IN DISTRESS, NO COMPLAINT OF PAIN, UNLABORED BREATHING ON ROOM AIR, SAFETY MEASURES APPLIED, BED IN LOW POSITION LOCKED, SIDE RAILS UPX3, CALL LIGHT WITHIN REACH Addendum: 02/13/23 at 0624 by HERACLIO PICHARDO RN charting is not for this pts.
--- NOTE | 2023-02-13 06:24 | NUR ---
CLOSING NOTE: PATIENT REMAIN IN BED , ON R/A NO SOB NO DISTRESS NOTED, NO COMPLAINT OF PAIN, UNLABORED BREATHING .ON SAFETY MEASURES APPLIED, BED IN LOW POSITION LOCKED, SIDE RAILS UPX3, CALL LIGHT WITHIN REACH WILL ENDORSE TO RN DAY SHIFT FOR CONTINUITY OF CARE.
[2023-02-13 06:55] LABS: BASOPHILS % (AUTO) 0.6 % (0.0-2.0); EOSINOPHILS % (AUTO) 1.2 % (0.0-6.0); HEMATOCRIT 40 % (33-45); HEMOGLOBIN 13.3 g/dL (11.5-14.8); LYMPHOCYTES # (AUTO) 1.1 K/uL (0.8-4.8); LYMPHOCYTES % (AUTO) 17.3 % (20.0-44.0); MEAN CORPUSCULAR HGB CONC 33 g/dl (31.0-36.0); MEAN CORPUSCULAR VOLUME 91 fL (82-100); MONOCYTES # (AUTO) 0.7 K/uL (0.1-1.30); MONOCYTES % (AUTO) 11.1 % (2.0-12.0); NEUTROPHILS # (AUTO) 4.4 K/uL (1.8-8.9); NEUTROPHILS % (AUTO) 69.8 % (43.0-81.0); PLATELET COUNT (AUTO) 196 K/uL (150-450); RED BLOOD CELL COUNT(AUTO) 4.45 MIL/uL (4.0-5.2); WHITE BLOOD COUNT (AUTO) 6.3 K/uL (4.3-11.0)
[2023-02-13 07:01] LABS: CALCIUM, SERUM 8.9 mg/dL (8.5-10.1); CARBON DIOXIDE 26 mmol/L (21-32); CHLORIDE 97 mmol/L (98-107); CREATININE 2.1 mg/dL (0.6-1.3); GLUCOSE 162 mg/dL (74-106); MAGNESIUM 1.9 mg/dL (1.8-2.4); PHOSPHORUS 3.9 mg/dL (2.5-4.9); POTASSIUM 3.3 mmol/L (3.5-5.1); SODIUM SERUM 134 mmol/L (136-145)
[2023-02-13 07:05] LABS: UREA NITROGEN, BLOOD 86 mg/dL (7-18)
--- NOTE | 2023-02-13 07:20 | NUR ---
HEAD OF INSIGHT OPENING NOTES Received pt awake in bed AOx3 with hearing aid on the right ear. No complaints of pain or discomfort at this time. Pt is on RA and tolerating it well. IV access on RAC 18G patent and intact. Siderails up at all times x2. Call light within reach. Will continue to monitor.
[2023-02-13] MEDS: BLOOD SUGAR DIAGNOSTIC 1 EACH STRIP IN SCH ×4 (07:30→21:28)
[2023-02-13 08:00] VITALS: BP 127/69
[2023-02-13] MEDS ORDERED: CLOP75TA15 PO (08:09)
[2023-02-13] MEDS ORDERED: ASPI-1169 PO (08:09)
[2023-02-13] MEDS ORDERED: ISOS60TA72 PO (08:09)
[2023-02-13] MEDS ORDERED: CARV6.25 PO (08:09)
[2023-02-13] MEDS ORDERED: POTASSIUM CHLORIDE 20 MEQ TAB.PRT.SR PO ONE (08:30)
--- NOTE | 2023-02-13 09:04 | NUR ---
MATERIALS PLANNER/PRODUCTION PLANNER NOTES Pt blood sugar checked ans is 229. 4 Units of insulin was offered per sliding scale but pt refused. Explained risks and benefits but still refused.
[2023-02-13] MEDS: FERROUS SULFATE (325 MG) 325 MG/TAB TABLET PO SCH ×2 (10:01→17:11)
[2023-02-13] MEDS: LINAGLIPTIN 5 MG TABLET PO SCH (10:01)
[2023-02-13] MEDS: ISOSORBIDE MONONITRATE (30MG) 30 MG TAB.SR.24H PO SCH (10:02)
[2023-02-13] MEDS: BUMETANIDE (1 MG) 1 MG TABLET PO SCH (10:02)
[2023-02-13] MEDS: MULTIVITAMINS,THERAGRAN 1 UDTAB TABLET PO SCH (10:02)
[2023-02-13] MEDS: CLOPIDOGREL BISULFATE 75 MG TABLET PO SCH (10:02)
[2023-02-13] MEDS: ASPIRIN 81 MG TAB.CHEW PO SCH (10:02)
[2023-02-13] MEDS: CARVEDILOL 6.25 MG TABLET PO SCH ×2 (10:03→17:12)
--- NOTE | 2023-02-13 11:01 | NUR ---
CERTIFIED PROFESSIONAL CODER NOTES New order from Dr. Roy for thoracentesis of the right lung. Pt refused. Explained risks and benefits of the procedure but pt still refused x3. CN and made aware.
[2023-02-13 12:00] VITALS: BP 120/81
--- NOTE | 2023-02-13 12:53 | NUR ---
PLEAT TAPER NOTES Pt complained of pain while urinating. MD made aware with orders to give PRN Pyridium 100mg.
--- NOTE | 2023-02-13 13:15 | NUR ---
TAILOR FITTER NOTES Pt BS 171. 2 unit of insulin was supposed to be given per sliding scale but pt refused. Offered 3x but still refused. Explained risks and benefits.
[2023-02-13 16:00] VITALS: BP 133/74
[2023-02-13] MEDS: MONTELUKAST SODIUM (10MG) 10 MG TABLET PO SCH (17:11)
--- NOTE | 2023-02-13 18:04 | NUR ---
GROUP SEGMENT CONSULTANT NOTES Pt BS 223. Pt refusing all insulin. Offered 3x but pt still refused. Explained risks and benefits.
--- NOTE | 2023-02-13 18:25 | NUR ---
IMPROVEMENT ANALYST CLOSING NOTES All due oral medicatio and tx given as ordered. Pt tolerated everything well. All needs attended to. Pt is still on RA and tolerating it well. Call light within reach. Will endorse to oncoming nurse.
--- NOTE | 2023-02-13 19:30 | NUR ---
RN Opening Notes Received pt in bed, wake, sitting at chair in bedside with vistor at bedside. AOx4. On RA and tolerating well. No SOB noted. No s/sx of respiratory distress noted. IV access in LFA #22G. IV is intact, patent, and flushing well. Safety precautions in place: bed in lowest, locked position, siderails upX2, and brakes on. Table and call light within reach. All needs met at this time.
[2023-02-13 20:00] VITALS: BP 134/85
[2023-02-13] MEDS: CEFTRIAXONE 1 G in IV D5W 50 ML IV SCH (21:04)
[2023-02-13] MEDS: ATORVASTATIN 10 MG TABLET PO SCH (21:04)
[2023-02-13] MEDS: INSULIN REGULAR, HUMAN 100 UNIT/ML 3 ML VIAL SQ PRN (21:29)
--- NOTE | 2023-02-13 21:29 | NUR ---
RN Notes Patient refused insulin "because my mom and she used insulin." Also said "my mom had fluid everywhere". Explained to patient that insulin better controls blood sugar levels and pros and cons to insulin coverage but still refused.
[2023-02-14] VITALS: BP 125/79
[2023-02-14] MEDS: ACETAMINOPHEN 325 MG TABLET PO PRN (01:29)
[2023-02-14 04:00] VITALS: BP 132/82
--- NOTE | 2023-02-14 06:35 | NUR ---
RN Closing Notes Pt in bed, awake, sitting in bed AOx4. On RA and tolerating well. No SOB noted. No s/sx of respiratory distress noted. Tele monitor detects sinus rhythm. IV access in LFA #22G. IV is intact, patent, and flushing well. All orders carried out. All needs met. Pt kept clean and dry. Safety precautions in place: bed in lowest, locked position, siderails upX2, and brakes on. Table and call light within reach. Will endorse to oncoming shift for ANTOINETTE.
[2023-02-14 07:04] LABS: CALCIUM, SERUM 8.8 mg/dL (8.5-10.1); CARBON DIOXIDE 25 mmol/L (21-32); CHLORIDE 98 mmol/L (98-107); CREATININE 2.2 mg/dL (0.6-1.3); GLUCOSE 128 mg/dL (74-106); MAGNESIUM 2.1 mg/dL (1.8-2.4); POTASSIUM 3.6 mmol/L (3.5-5.1); SODIUM SERUM 134 mmol/L (136-145)
[2023-02-14 07:06] LABS: UREA NITROGEN, BLOOD 80 mg/dL (7-18)
[2023-02-14 07:20] LABS: BASOPHILS % (AUTO) 0.6 % (0.0-2.0); EOSINOPHILS % (AUTO) 1.5 % (0.0-6.0); HEMATOCRIT 38 % (33-45); HEMOGLOBIN 12.5 g/dL (11.5-14.8); LYMPHOCYTES # (AUTO) 0.9 K/uL (0.8-4.8); LYMPHOCYTES % (AUTO) 18.6 % (20.0-44.0); MEAN CORPUSCULAR HGB CONC 33 g/dl (31.0-36.0); MEAN CORPUSCULAR VOLUME 91 fL (82-100); MONOCYTES # (AUTO) 0.6 K/uL (0.1-1.30); MONOCYTES % (AUTO) 12.7 % (2.0-12.0); NEUTROPHILS # (AUTO) 3.4 K/uL (1.8-8.9); NEUTROPHILS % (AUTO) 66.6 % (43.0-81.0); PLATELET COUNT (AUTO) 180 K/uL (150-450); RED BLOOD CELL COUNT(AUTO) 4.16 MIL/uL (4.0-5.2); WHITE BLOOD COUNT (AUTO) 5.1 K/uL (4.3-11.0)
--- NOTE | 2023-02-14 07:24 | NUR ---
BUILDING TRADES TEACHER OPENING NOTES Received pt awake in bed AOx3 with hearing aid on the right ear. No complaints of pain or discomfort at this time. Pt is on RA and tolerating it well. IV access on LFA 22G patent and intact. Siderails up at all times x2. Call light within reach. Will continue to monitor.
[2023-02-14] MEDS: BLOOD SUGAR DIAGNOSTIC 1 EACH STRIP IN SCH (07:30)
[2023-02-14 08:00] VITALS: BP 117/67
[2023-02-14] MEDS: CLOPIDOGREL BISULFATE 75 MG TABLET PO SCH (09:07)
[2023-02-14] MEDS: LINAGLIPTIN 5 MG TABLET PO SCH (09:07)
[2023-02-14 09:08] VITALS: BP 117/64
[2023-02-14] MEDS: CARVEDILOL 6.25 MG TABLET PO SCH (09:08)
[2023-02-14] MEDS: ASPIRIN 81 MG TAB.CHEW PO SCH (09:08)
[2023-02-14] MEDS: MULTIVITAMINS,THERAGRAN 1 UDTAB TABLET PO SCH (09:08)
[2023-02-14] MEDS: FERROUS SULFATE (325 MG) 325 MG/TAB TABLET PO SCH (09:08)
[2023-02-14] MEDS: BUMETANIDE (1 MG) 1 MG TABLET PO SCH (09:08)
[2023-02-14] MEDS: ISOSORBIDE MONONITRATE (30MG) 30 MG TAB.SR.24H PO SCH (09:08)
--- NOTE | 2023-02-14 09:14 | NUR ---
VICTIM WITNESS ADMINISTRATOR NOTES Pt BS 234. Offered insulin per sliding scale but pt refused. Explained risks and benefits but still refused. CN aware.
[2023-02-14] MEDS ORDERED: CEPH500C2 PO (10:34)
--- NOTE | 2023-02-14 12:30 | NUR ---
COMPUTER SYSTEMS DESIGN ANALYST NOTES Pt discharged to home. Paperwork and discharge instructions given to pt. Explained everything to pt and daughter at bedside. IV access and external heart monitor taken out.
== END 2023-02-14 12:49 | disposition home or self-care (01) | DRG 280 ==
LOC: ER 20:57 → TELE1 02-11 00:30
PROVIDERS: ADMIT Nurse Practitioner Acute Care; ATTEND Nurse Practitioner Acute Care
DX: I13.0 Hypertensive heart and chronic kidney disease with heart failure and stage 1 through stage 4 chronic kidney disease, or unspecified chronic kidney disease (principal); I21.A1 Myocardial infarction type 2; I50.23 Acute on chronic systolic (congestive) heart failure; J15.9 Unspecified bacterial pneumonia; N17.0 Acute kidney failure with tubular necrosis; N39.0 Urinary tract infection, site not specified; J98.11 Atelectasis; I31.39 Other pericardial effusion (noninflammatory); G93.40 Encephalopathy, unspecified; J90 Pleural effusion, not elsewhere classified; N18.9 Chronic kidney disease, unspecified; Z20.822 Contact with and (suspected) exposure to COVID-19; E11.22 Type 2 diabetes mellitus with diabetic chronic kidney disease; E78.5 Hyperlipidemia, unspecified; E11.36 Type 2 diabetes mellitus with diabetic cataract; I25.10 Atherosclerotic heart disease of native coronary artery without angina pectoris; I25.5 Ischemic cardiomyopathy; Z88.1 Allergy status to other antibiotic agents; Z88.8 Allergy status to other drugs, medicaments and biological substances; Z79.51 Long term (current) use of inhaled steroids; Z79.84 Long term (current) use of oral hypoglycemic drugs; Z79.899 Other long term (current) drug therapy; E87.6 Hypokalemia; H91.90 Unspecified hearing loss, unspecified ear; B96.89 Other specified bacterial agents as the cause of diseases classified elsewhere; I27.20 Pulmonary hypertension, unspecified; I34.0 Nonrheumatic mitral (valve) insufficiency; N28.1 Cyst of kidney, acquired; Z87.440 Personal history of urinary (tract) infections
CPT/HCPCS: 36415; 71045-TC; 76770-TC; 80048-TC; 80061-TC; 80076-TC; 81001; 82962-TC; 83735-TC; 83880; 84100-TC; 84484-TC; 85025-TC; 85378-TC; 85730-TC; 87040-TC; 87081-TC; 87086-TC; 93307-TC; 93970-TC; A4223; C9803; G0378; J0696; J1644; J1815; J2405; J3490; J7050; J7060

== ENCOUNTER → 2023-02-10 | Outpatient (CLI) | payer MEDICARE, BC ==
[~2023-02-10] MED LIST changes: +ASPI-1169 PO; +CARV6.25 PO; +CEPH500C2 PO; +CLOP75TA15 PO; +ISOS60TA72 PO
== END | disposition home or self-care (01) ==
LOC: MSC 15:30
PROVIDERS: ATTEND Internal Medicine
DX: R05.9 Cough, unspecified (principal); R30.0 Dysuria; E11.22 Type 2 diabetes mellitus with diabetic chronic kidney disease; I13.0 Hypertensive heart and chronic kidney disease with heart failure and stage 1 through stage 4 chronic kidney disease, or unspecified chronic kidney disease; N18.4 Chronic kidney disease, stage 4 (severe); I50.89 Other heart failure; Z79.84 Long term (current) use of oral hypoglycemic drugs; E11.21 Type 2 diabetes mellitus with diabetic nephropathy; G47.00 Insomnia, unspecified; K21.9 Gastro-esophageal reflux disease without esophagitis; R06.2 Wheezing; Z87.09 Personal history of other diseases of the respiratory system; R25.2 Cramp and spasm; R31.9 Hematuria, unspecified

== ENCOUNTER → 2023-02-23 | Outpatient (CLI) | payer MEDICARE, BC ==
[~2023-02-23] MED LIST changes: +ASPI-1169 PO; +CARV6.25 PO; +CEPH500C2 PO; +CLOP75TA15 PO; +ISOS60TA72 PO
== END | disposition home or self-care (01) ==
LOC: MSC 15:00
PROVIDERS: ATTEND Internal Medicine
DX: E11.22 Type 2 diabetes mellitus with diabetic chronic kidney disease (principal); I13.0 Hypertensive heart and chronic kidney disease with heart failure and stage 1 through stage 4 chronic kidney disease, or unspecified chronic kidney disease; N18.4 Chronic kidney disease, stage 4 (severe); I50.89 Other heart failure; N17.9 Acute kidney failure, unspecified; Z79.84 Long term (current) use of oral hypoglycemic drugs; E11.21 Type 2 diabetes mellitus with diabetic nephropathy; R05.9 Cough, unspecified; R30.0 Dysuria; G47.00 Insomnia, unspecified; K21.9 Gastro-esophageal reflux disease without esophagitis; R06.2 Wheezing; Z87.09 Personal history of other diseases of the respiratory system; R25.2 Cramp and spasm; R31.9 Hematuria, unspecified

== ENCOUNTER 2023-03-23 14:00 | Outpatient (CLI) | payer MEDICARE, BC | END 2023-03-23 23:59 | disposition home or self-care (01) | LOC: MSC 14:00 | PROVIDERS: ATTEND Internal Medicine | DX: S91.301A Unspecified open wound, right foot, initial encounter (principal); E11.22 Type 2 diabetes mellitus with diabetic chronic kidney disease; I13.0 Hypertensive heart and chronic kidney disease with heart failure and stage 1 through stage 4 chronic kidney disease, or unspecified chronic kidney disease; N18.4 Chronic kidney disease, stage 4 (severe); I50.89 Other heart failure; N17.9 Acute kidney failure, unspecified; Z79.84 Long term (current) use of oral hypoglycemic drugs; E11.21 Type 2 diabetes mellitus with diabetic nephropathy; R05.9 Cough, unspecified; R30.0 Dysuria; G47.00 Insomnia, unspecified; K21.9 Gastro-esophageal reflux disease without esophagitis; R06.2 Wheezing; Z87.09 Personal history of other diseases of the respiratory system; R25.2 Cramp and spasm; R31.9 Hematuria, unspecified ==

== ENCOUNTER 2023-03-29 11:11 | Outpatient (CLI) | payer MEDICARE, BC ==
[2023-03-29] MEDS ORDERED: MUPIROCIN 2% CREAM 15 GM TUBE TP ONE (11:44)
== END 2023-03-29 23:59 | disposition home or self-care (01) ==
LOC: WOU 11:11
PROVIDERS: ATTEND Podiatrist Foot & Ankle Surgery
DX: S81.811A Laceration without foreign body, right lower leg, initial encounter (principal); X58.XXXA Exposure to other specified factors, initial encounter; Y92.89 Other specified places as the place of occurrence of the external cause; R60.1 Generalized edema; E11.9 Type 2 diabetes mellitus without complications; Z79.84 Long term (current) use of oral hypoglycemic drugs; I10 Essential (primary) hypertension
CPT/HCPCS: 11042

== ENCOUNTER → 2023-03-30 | Outpatient (CLI) | payer MEDICARE, BC | END | disposition home or self-care (01) | LOC: MSC 14:00 | PROVIDERS: ATTEND Internal Medicine | DX: A53.9 Syphilis, unspecified (principal); S91.301D Unspecified open wound, right foot, subsequent encounter; E11.22 Type 2 diabetes mellitus with diabetic chronic kidney disease; I13.0 Hypertensive heart and chronic kidney disease with heart failure and stage 1 through stage 4 chronic kidney disease, or unspecified chronic kidney disease; N18.4 Chronic kidney disease, stage 4 (severe); I50.89 Other heart failure; N17.9 Acute kidney failure, unspecified; Z79.84 Long term (current) use of oral hypoglycemic drugs; E11.21 Type 2 diabetes mellitus with diabetic nephropathy; R05.9 Cough, unspecified; R30.0 Dysuria; G47.00 Insomnia, unspecified; K21.9 Gastro-esophageal reflux disease without esophagitis; R06.2 Wheezing; Z87.09 Personal history of other diseases of the respiratory system; R31.9 Hematuria, unspecified ==

== ENCOUNTER 2023-04-19 11:51 | Outpatient (CLI) | payer MEDICARE, BC | END 2023-04-19 23:59 | disposition home or self-care (01) | LOC: WOU 11:51 | PROVIDERS: ATTEND Podiatrist Foot & Ankle Surgery | DX: S81.811D Laceration without foreign body, right lower leg, subsequent encounter (principal); X58.XXXD Exposure to other specified factors, subsequent encounter; L14 Bullous disorders in diseases classified elsewhere; R60.1 Generalized edema; E11.9 Type 2 diabetes mellitus without complications; Z79.84 Long term (current) use of oral hypoglycemic drugs | CPT/HCPCS: 36415 ==

== ENCOUNTER 2023-04-19 12:00 | Outpatient (CLI) | payer MEDICARE, BC ==
[2023-04-19 13:37] LABS: BASOPHILS % (AUTO) 0.9 % (0.0-2.0); HEMATOCRIT 41 % (33-45); HEMOGLOBIN 13.1 g/dL (11.5-14.8); LYMPHOCYTES # (AUTO) 0.6 K/uL (0.8-4.8); LYMPHOCYTES % (AUTO) 14.7 % (20.0-44.0); MEAN CORPUSCULAR HGB CONC 32 g/dl (31.0-36.0); MEAN CORPUSCULAR VOLUME 95 fL (82-100); MONOCYTES # (AUTO) 0.3 K/uL (0.1-1.30); MONOCYTES % (AUTO) 8.7 % (2.0-12.0); NEUTROPHILS % (AUTO) 75.7 % (43.0-81.0); PLATELET COUNT (AUTO) 151 K/uL (150-450); WHITE BLOOD COUNT (AUTO) 3.9 K/uL (4.3-11.0)
[2023-04-19 13:48] LABS: CHOLESTEROL 130 mg/dL (<200); HDL CHOLESTEROL 34 mg/dL (40-60); LDL 86 mg/dL (0-99); TRIGLYCERIDES 83 mg/dL (30-150)
[2023-04-19 13:55] LABS: ALANINE AMINOTRANSFERASE 21 U/L (12-78); ALBUMIN 3.3 g/dL (3.4-5.0); ALKALINE PHOSPHATASE 89 U/L (46-116); ASPARTATE AMINOTRANSFERASE 26 U/L (15-37); BILIRUBIN,TOTAL 1.7 mg/dL (0.2-1.0); CALCIUM, SERUM 9.2 mg/dL (8.5-10.1); CARBON DIOXIDE 28 mmol/L (21-32); CHLORIDE 102 mmol/L (98-107); CREATININE 2.6 mg/dL (0.6-1.3); GLUCOSE 112 mg/dL (74-106); PHOSPHORUS 4.2 mg/dL (2.5-4.9); POTASSIUM 3.2 mmol/L (3.5-5.1); SODIUM SERUM 141 mmol/L (136-145)
[2023-04-19 13:56] LABS: MAGNESIUM 1.9 mg/dL (1.8-2.4); TOTAL PROTEIN, SERUM 7.4 g/dL (6.4-8.2); UREA NITROGEN, BLOOD 82 mg/dL (7-18)
== END 2023-04-19 23:59 | disposition home or self-care (01) ==
LOC: MSC 12:00
PROVIDERS: ATTEND Internal Medicine
DX: R60.0 Localized edema (principal); A53.9 Syphilis, unspecified; R07.81 Pleurodynia; S91.301D Unspecified open wound, right foot, subsequent encounter; E11.22 Type 2 diabetes mellitus with diabetic chronic kidney disease; I13.0 Hypertensive heart and chronic kidney disease with heart failure and stage 1 through stage 4 chronic kidney disease, or unspecified chronic kidney disease; N18.4 Chronic kidney disease, stage 4 (severe); I50.89 Other heart failure; N17.9 Acute kidney failure, unspecified; Z79.84 Long term (current) use of oral hypoglycemic drugs; E11.21 Type 2 diabetes mellitus with diabetic nephropathy; R05.9 Cough, unspecified; R30.0 Dysuria; G47.00 Insomnia, unspecified; K21.9 Gastro-esophageal reflux disease without esophagitis; R06.2 Wheezing; Z87.09 Personal history of other diseases of the respiratory system; R31.9 Hematuria, unspecified
CPT/HCPCS: 80061; 85025; 83735; 83036; 84100; 85652; 36415; 80053; 83880; 86140; 83970; G0463

== ENCOUNTER 2023-06-24 12:01 | Outpatient (CLI) | payer MEDICARE, BC | END 2023-06-24 23:59 | disposition home or self-care (01) | LOC: WOU 12:01 | PROVIDERS: ATTEND Podiatrist Foot & Ankle Surgery | DX: I87.311 Chronic venous hypertension (idiopathic) with ulcer of right lower extremity (principal); L97.812 Non-pressure chronic ulcer of other part of right lower leg with fat layer exposed; S80.821A Blister (nonthermal), right lower leg, initial encounter; X58.XXXA Exposure to other specified factors, initial encounter; Y92.89 Other specified places as the place of occurrence of the external cause; E11.40 Type 2 diabetes mellitus with diabetic neuropathy, unspecified; I10 Essential (primary) hypertension; Z79.84 Long term (current) use of oral hypoglycemic drugs; Z79.899 Other long term (current) drug therapy; N28.9 Disorder of kidney and ureter, unspecified; R60.1 Generalized edema; J06.9 Acute upper respiratory infection, unspecified; R23.8 Other skin changes; R53.1 Weakness | CPT/HCPCS: 10140; 11042 ==

== ENCOUNTER → 2023-07-14 | Outpatient (CLI) | payer MEDICARE, BC ==
[~2023-07-14] MED LIST changes: +ASPI-1420 PO; +DOCU100C36 PO; +FURO40TA5 PO; +GENT3.5O4 TOP; +LINA5TAB PO; +SEVE0.8P3 PO
== END | disposition home or self-care (01) ==
LOC: MSC 15:15
PROVIDERS: ATTEND Internal Medicine
DX: E11.22 Type 2 diabetes mellitus with diabetic chronic kidney disease (principal); I13.0 Hypertensive heart and chronic kidney disease with heart failure and stage 1 through stage 4 chronic kidney disease, or unspecified chronic kidney disease; N18.4 Chronic kidney disease, stage 4 (severe); I50.89 Other heart failure; N17.9 Acute kidney failure, unspecified; Z99.2 Dependence on renal dialysis; Z79.84 Long term (current) use of oral hypoglycemic drugs; R91.8 Other nonspecific abnormal finding of lung field; E11.21 Type 2 diabetes mellitus with diabetic nephropathy; R06.02 Shortness of breath; E87.6 Hypokalemia; S91.301D Unspecified open wound, right foot, subsequent encounter; A53.9 Syphilis, unspecified; R30.0 Dysuria; G47.00 Insomnia, unspecified; K21.9 Gastro-esophageal reflux disease without esophagitis; R06.2 Wheezing; Z87.09 Personal history of other diseases of the respiratory system; R31.9 Hematuria, unspecified; R51.9 Headache, unspecified

== ENCOUNTER 2023-07-20 10:21 | Inpatient (IN) | payer MEDICARE, BC ==
[~2023-07-20] VITALS: Ht 157.5 cm; Wt 59.0 kg
[~2023-07-20 10:21] MED LIST changes: -ASPI-1420 PO; -DOCU100C36 PO; -FURO40TA5 PO; -GENT3.5O4 TOP; -LINA5TAB PO; -SEVE0.8P3 PO
[2023-07-20 11:22] LABS: BASOPHILS % (AUTO) 0.5 % (0.0-2.0); EOSINOPHILS % (AUTO) 0.2 % (0.0-6.0); HEMATOCRIT 33 % (33-45); HEMOGLOBIN 10.8 g/dL (11.5-14.8); LYMPHOCYTES # (AUTO) 0.7 K/uL (0.8-4.8); LYMPHOCYTES % (AUTO) 14.2 % (20.0-44.0); MEAN CORPUSCULAR HEMOGLOBIN 32 PG (26.0-33.0); MEAN CORPUSCULAR HGB CONC 33 g/dl (31.0-36.0); MEAN CORPUSCULAR VOLUME 98 fL (82-100); MONOCYTES # (AUTO) 0.8 K/uL (0.1-1.30); MONOCYTES % (AUTO) 16.2 % (2.0-12.0); NEUTROPHILS # (AUTO) 3.2 K/uL (1.8-8.9); NEUTROPHILS % (AUTO) 68.9 % (43.0-81.0); PLATELET COUNT (AUTO) 146 K/uL (150-450); RED BLOOD CELL COUNT(AUTO) 3.39 MIL/uL (4.0-5.2); RED CELL DISTRIBUTION WIDTH 16.3 % (11.5-15.0); WHITE BLOOD COUNT (AUTO) 4.7 K/uL (4.3-11.0)
[2023-07-20 11:23] LABS: CALCIUM, SERUM 8.4 mg/dL (8.5-10.1); CARBON DIOXIDE 26 mmol/L (21-32); CHLORIDE 98 mmol/L (98-107); CREATININE 3.3 mg/dL (0.6-1.3); GLUCOSE 140 mg/dL (74-106); POTASSIUM 3.3 mmol/L (3.5-5.1); SODIUM SERUM 131 mmol/L (136-145); UREA NITROGEN, BLOOD 34 mg/dL (7-18)
[2023-07-20] MEDS ORDERED: FURO40TA5 PO (11:35)
[2023-07-20] MEDS ORDERED: DOCU100C36 PO (11:35)
[2023-07-20] MEDS ORDERED: GENT3.5O4 TOP (11:35)
[2023-07-20] MEDS ORDERED: SEVE0.8P3 PO (11:35)
[2023-07-20] MEDS ORDERED: ASPI-1420 PO (11:35)
[2023-07-20] MEDS ORDERED: LINA5TAB PO (11:35)
[2023-07-20 11:42] LABS: ALANINE AMINOTRANSFERASE 14 U/L (12-78); ALBUMIN 2.9 g/dL (3.4-5.0); ALKALINE PHOSPHATASE 98 U/L (46-116); ASPARTATE AMINOTRANSFERASE 26 U/L (15-37); BILIRUBIN,DIRECT 0.9 mg/dL (0.0-0.2); BILIRUBIN,TOTAL 1.4 mg/dL (0.2-1.0); TOTAL PROTEIN, SERUM 6.9 g/dL (6.4-8.2)
[2023-07-20] MEDS ORDERED: ASPIRIN 325 MG TABLET PO ONE (12:00)
[2023-07-20 12:04] LABS: NT-PRO BNP > 25000 pg/mL (0-125)
[2023-07-20] MEDS ORDERED: ASPIRIN 325 MG TABLET ONE (12:15)
[2023-07-20] MEDS ORDERED: Z GUARD REMEDY 4 OZ OINT TP PRN (14:30)
[2023-07-20] MEDS ORDERED: ONDANSETRON HCL/PF 4 MG/2 ML VIAL IVP PRN (14:30)
[2023-07-20] MEDS ORDERED: DOCUSATE SODIUM 100 MG CAPSULE PO PRN (14:30)
[2023-07-20] MEDS ORDERED: HYDROCODONE/APAP 5/325MG TABLET PO PRN (14:30)
[2023-07-20 16:00] VITALS: BP 103/65; TEMP 97.7; O2SAT 99
[2023-07-20] MEDS ORDERED: POTASSIUM CHLORIDE 20 MEQ TAB.PRT.SR PO ONE ×2 (16:00→22:30)
[2023-07-20] MEDS ORDERED: GENTAMICIN OPTH OINT 0.3% 3.5 G TUBE EACHEYE SCH (17:00)
[2023-07-20] MEDS: SEVELAMER CARBONATE 800 MG POWD.PACK PO SCH (18:00)
[2023-07-20 20:00] VITALS: BP 93/75; TEMP 97.3; O2SAT 100
[2023-07-20] MEDS: ACETAMINOPHEN 325 MG TABLET PO PRN (22:01)
[2023-07-21] VITALS: BP 123/73; TEMP 98; O2SAT 98
[2023-07-21 00:21] VITALS: BP 105/59; TEMP 98; O2SAT 93
[2023-07-21 04:00] VITALS: BP 130/72; TEMP 98.2; O2SAT 99
[2023-07-21 06:59] LABS: BASOPHILS % (AUTO) 0.7 % (0.0-2.0); EOSINOPHILS % (AUTO) 0.5 % (0.0-6.0); HEMATOCRIT 35 % (33-45); HEMOGLOBIN 11.3 g/dL (11.5-14.8); LYMPHOCYTES # (AUTO) 0.6 K/uL (0.8-4.8); LYMPHOCYTES % (AUTO) 13.3 % (20.0-44.0); MEAN CORPUSCULAR HEMOGLOBIN 32 PG (26.0-33.0); MEAN CORPUSCULAR HGB CONC 32 g/dl (31.0-36.0); MEAN CORPUSCULAR VOLUME 99 fL (82-100); MONOCYTES # (AUTO) 0.7 K/uL (0.1-1.30); NEUTROPHILS # (AUTO) 2.9 K/uL (1.8-8.9); NEUTROPHILS % (AUTO) 68.5 % (43.0-81.0); PLATELET COUNT (AUTO) 142 K/uL (150-450); RED BLOOD CELL COUNT(AUTO) 3.53 MIL/uL (4.0-5.2); RED CELL DISTRIBUTION WIDTH 16.6 % (11.5-15.0); WHITE BLOOD COUNT (AUTO) 4.2 K/uL (4.3-11.0)
[2023-07-21] MEDS: PANTOPRAZOLE 40 MG TABLET.DR PO SCH (07:44)
[2023-07-21] MEDS: SEVELAMER CARBONATE 800 MG POWD.PACK PO SCH (07:49)
[2023-07-21 08:00] VITALS: BP 96/68; TEMP 98.1; O2SAT 96
[2023-07-21 09:52] LABS: ALANINE AMINOTRANSFERASE 14 U/L (12-78); ALBUMIN 2.8 g/dL (3.4-5.0); ALKALINE PHOSPHATASE 99 U/L (46-116); ASPARTATE AMINOTRANSFERASE 27 U/L (15-37); BILIRUBIN,TOTAL 1.3 mg/dL (0.2-1.0); CALCIUM, SERUM 8.6 mg/dL (8.5-10.1); CARBON DIOXIDE 18 mmol/L (21-32); CHOLESTEROL 105 mg/dL (<200); CREATININE 2.5 mg/dL (0.6-1.3); GLUCOSE 115 mg/dL (74-106); HDL CHOLESTEROL 39 mg/dL (40-60); LDL 70 mg/dL (0-99); MAGNESIUM 2.2 mg/dL (1.8-2.4); PHOSPHORUS 4.2 mg/dL (2.5-4.9); THYROID STIMULATING HORMONE 1.179 uIU/mL (0.358-3.74); TOTAL PROTEIN, SERUM 6.7 g/dL (6.4-8.2); TRIGLYCERIDES 61 mg/dL (30-150); UREA NITROGEN, BLOOD 23 mg/dL (7-18)
[2023-07-21] MEDS: LINAGLIPTIN 5 MG TABLET PO SCH (10:03)
[2023-07-21] MEDS: ASPIRIN EC 81 MG TABLET.DR PO SCH (10:03)
[2023-07-21] MEDS: HEPARIN SODIUM, PORCINE 5000 UNITS/1 ML VIAL SQ SCH ×2 (10:04→17:20)
[2023-07-21 10:25] LABS: CHLORIDE 102 mmol/L (98-107); POTASSIUM 4.1 mmol/L (3.5-5.1); SODIUM SERUM 137 mmol/L (136-145)
[2023-07-21 11:51] LABS: NEUTROPHILS % (MANUAL) 71 (42-76)
[2023-07-21 11:52] LABS: ANISOCYTOSIS 1+; BASOPHILS % (MANUAL) 0 % (0.0-2.0); EOSINOPHILS % (MANUAL) 2 % (0-4); LYMPHOCYTES % (MANUAL) 11 % (16-48); MONOCYTES % (MANUAL) 16 % (0-11.0); PLATELET ESTIMATE ADEQUATE
[2023-07-21] MEDS: GENTAMICIN OPTH SOLN 0.3% 5 ML BOTTLE EACHEYE SCH ×4 (13:00→21:00)
[2023-07-21] MEDS: SEVELAMER CARBONATE 800 MG TABLET PO SCH ×2 (13:19→17:18)
[2023-07-21 16:00] VITALS: BP 120/74; TEMP 98.2; O2SAT 99
[2023-07-21 20:00] VITALS: BP 88/56; TEMP 97.7; O2SAT 97
[2023-07-22] VITALS: BP 106/62; TEMP 97.9; O2SAT 95
[2023-07-22 04:00] VITALS: BP 120/56; TEMP 98.1; O2SAT 96
[2023-07-22] MEDS: PANTOPRAZOLE 40 MG TABLET.DR PO SCH ×2 (07:30→08:43)
[2023-07-22 08:00] VITALS: BP 128/59; TEMP 98.8; O2SAT 96
[2023-07-22 08:07] LABS: HEPATITIS B SURFACE AB Non Reactive (.)
[2023-07-22] MEDS: SEVELAMER CARBONATE 800 MG TABLET PO SCH ×3 (08:43→17:39)
[2023-07-22] MEDS: GENTAMICIN OPTH SOLN 0.3% 5 ML BOTTLE EACHEYE SCH ×3 (08:43→17:40)
[2023-07-22] MEDS: ASPIRIN EC 81 MG TABLET.DR PO SCH (08:43)
[2023-07-22] MEDS: HEPARIN SODIUM, PORCINE 5000 UNITS/1 ML VIAL SQ SCH ×2 (08:45→17:39)
[2023-07-22] MEDS: LINAGLIPTIN 5 MG TABLET PO SCH (08:46)
[2023-07-22] MEDS: THERAHONEY GEL 1.5 OZ TUBE TP SCH (09:26)
[2023-07-22 10:52] LABS: BASOPHILS % (AUTO) 0.7 % (0.0-2.0); EOSINOPHILS % (AUTO) 0.2 % (0.0-6.0); HEMATOCRIT 36 % (33-45); HEMOGLOBIN 11.6 g/dL (11.5-14.8); LYMPHOCYTES # (AUTO) 0.7 K/uL (0.8-4.8); LYMPHOCYTES % (AUTO) 15.3 % (20.0-44.0); MEAN CORPUSCULAR HEMOGLOBIN 31 PG (26.0-33.0); MEAN CORPUSCULAR HGB CONC 32 g/dl (31.0-36.0); MEAN CORPUSCULAR VOLUME 98 fL (82-100); MONOCYTES # (AUTO) 0.8 K/uL (0.1-1.30); NEUTROPHILS % (AUTO) 65.8 % (43.0-81.0); PLATELET COUNT (AUTO) 141 K/uL (150-450); RED BLOOD CELL COUNT(AUTO) 3.68 MIL/uL (4.0-5.2); RED CELL DISTRIBUTION WIDTH 16.5 % (11.5-15.0); WHITE BLOOD COUNT (AUTO) 4.6 K/uL (4.3-11.0)
[2023-07-22 11:00] LABS: ALANINE AMINOTRANSFERASE 15 U/L (12-78); ALKALINE PHOSPHATASE 96 U/L (46-116); ASPARTATE AMINOTRANSFERASE 25 U/L (15-37); BILIRUBIN,TOTAL 1.4 mg/dL (0.2-1.0); CALCIUM, SERUM 8.3 mg/dL (8.5-10.1); CARBON DIOXIDE 28 mmol/L (21-32); CREATININE 2.7 mg/dL (0.6-1.3); GLUCOSE 147 mg/dL (74-106); MAGNESIUM 2.2 mg/dL (1.8-2.4); PHOSPHORUS 3.9 mg/dL (2.5-4.9); TOTAL PROTEIN, SERUM 7.1 g/dL (6.4-8.2); UREA NITROGEN, BLOOD 27 mg/dL (7-18)
[2023-07-22 11:21] LABS: ANISOCYTOSIS 1+; BASOPHILS % (MANUAL) 0 % (0.0-2.0); EOSINOPHILS % (MANUAL) 0 % (0-4); LYMPHOCYTES % (MANUAL) 13 % (16-48); MONOCYTES % (MANUAL) 16 % (0-11.0); NEUTROPHILS % (MANUAL) 71 (42-76); PLATELET ESTIMATE ADEQUATE
[2023-07-22 11:39] LABS: POTASSIUM 3.9 mmol/L (3.5-5.1); SODIUM SERUM 140 mmol/L (136-145)
[2023-07-22 11:40] LABS: CHLORIDE 103 mmol/L (98-107)
[2023-07-22 12:00] VITALS: BP 120/90; TEMP 98.4; O2SAT 96
[2023-07-22 16:00] VITALS: BP 111/70; TEMP 98.6; O2SAT 97
[2023-07-22 20:00] VITALS: BP 113/75; TEMP 98.8; O2SAT 94
[2023-07-23] VITALS: BP 121/74; TEMP 98.4; O2SAT 94
[2023-07-23 04:00] VITALS: BP 112/70; TEMP 98.1; O2SAT 96
[2023-07-23] MEDS: GENTAMICIN OPTH SOLN 0.3% 5 ML BOTTLE EACHEYE SCH ×2 (06:25→08:51)
[2023-07-23 08:00] VITALS: BP 131/78; TEMP 98.5; O2SAT 100
[2023-07-23] MEDS: PANTOPRAZOLE 40 MG TABLET.DR PO SCH (08:04)
[2023-07-23] MEDS: HEPARIN SODIUM, PORCINE 5000 UNITS/1 ML VIAL SQ SCH ×2 (08:38→17:06)
[2023-07-23] MEDS: LINAGLIPTIN 5 MG TABLET PO SCH (08:38)
[2023-07-23] MEDS: ASPIRIN EC 81 MG TABLET.DR PO SCH (08:38)
[2023-07-23] MEDS: SEVELAMER CARBONATE 800 MG TABLET PO SCH ×4 (08:38→17:05)
[2023-07-23] MEDS: THERAHONEY GEL 1.5 OZ TUBE TP SCH (09:00)
[2023-07-23] MEDS: ACETAMINOPHEN 325 MG TABLET PO PRN (10:00)
[2023-07-23 12:00] VITALS: BP 106/75; TEMP 98.5; O2SAT 100
[2023-07-23 12:35] LABS: HEMATOCRIT 40 % (33-45); HEMOGLOBIN 12.4 g/dL (11.5-14.8); LYMPHOCYTES # (AUTO) 0.6 K/uL (0.8-4.8); LYMPHOCYTES % (AUTO) 13.4 % (20.0-44.0); MEAN CORPUSCULAR HEMOGLOBIN 32 PG (26.0-33.0); MEAN CORPUSCULAR HGB CONC 31 g/dl (31.0-36.0); MEAN CORPUSCULAR VOLUME 101 fL (82-100); MONOCYTES # (AUTO) 0.7 K/uL (0.1-1.30); MONOCYTES % (AUTO) 16.8 % (2.0-12.0); NEUTROPHILS # (AUTO) 2.9 K/uL (1.8-8.9); NEUTROPHILS % (AUTO) 68.8 % (43.0-81.0); PLATELET COUNT (AUTO) 135 K/uL (150-450); RED BLOOD CELL COUNT(AUTO) 3.91 MIL/uL (4.0-5.2); RED CELL DISTRIBUTION WIDTH 18.7 % (11.5-15.0); WHITE BLOOD COUNT (AUTO) 4.2 K/uL (4.3-11.0)
[2023-07-23 13:09] LABS: MAGNESIUM 2.3 mg/dL (1.8-2.4); PHOSPHORUS 3.6 mg/dL (2.5-4.9)
[2023-07-23 16:00] VITALS: BP 142/93; TEMP 98.2; O2SAT 100
[2023-07-23] MEDS: LEVOFLOXACIN (250MG) 250 MG TABLET PO SCH (16:38)
[2023-07-23] MEDS ORDERED: VANCOMYCIN 1 GM in IV D5W 250 ML IV ONE (17:00)
[2023-07-23 20:00] VITALS: BP 102/71; TEMP 98.4; O2SAT 97
[2023-07-23] MEDS ORDERED: LOPERAMIDE HCL (2 MG CAP) 2 MG CAPSULE PO PRN (22:00)
[2023-07-24] VITALS: BP 97/63; TEMP 98.4; O2SAT 97
[2023-07-24] MEDS: ACETAMINOPHEN 325 MG TABLET PO PRN ×3 (02:49→21:46)
[2023-07-24 04:00] VITALS: BP 98/69; TEMP 98.2; O2SAT 93
[2023-07-24] MEDS: PANTOPRAZOLE 40 MG TABLET.DR PO SCH (07:19)
[2023-07-24 07:30] LABS: BASOPHILS % (AUTO) 0.8 % (0.0-2.0); EOSINOPHILS % (AUTO) 0.2 % (0.0-6.0); HEMATOCRIT 34 % (33-45); HEMOGLOBIN 10.9 g/dL (11.5-14.8); LYMPHOCYTES # (AUTO) 0.6 K/uL (0.8-4.8); MEAN CORPUSCULAR HEMOGLOBIN 32 PG (26.0-33.0); MEAN CORPUSCULAR HGB CONC 33 g/dl (31.0-36.0); MEAN CORPUSCULAR VOLUME 99 fL (82-100); MONOCYTES # (AUTO) 0.7 K/uL (0.1-1.30); MONOCYTES % (AUTO) 18.8 % (2.0-12.0); NEUTROPHILS # (AUTO) 2.5 K/uL (1.8-8.9); NEUTROPHILS % (AUTO) 65.2 % (43.0-81.0); PLATELET COUNT (AUTO) 151 K/uL (150-450); RED CELL DISTRIBUTION WIDTH 17.3 % (11.5-15.0); WHITE BLOOD COUNT (AUTO) 3.9 K/uL (4.3-11.0)
[2023-07-24] MEDS ORDERED: ALBUMIN 25% 25 GM in PREMIX 1 EA IV PRN (07:30)
[2023-07-24 08:00] VITALS: BP 110/61; TEMP 97.9; O2SAT 96
[2023-07-24 08:08] LABS: CALCIUM, SERUM 8.3 mg/dL (8.5-10.1); CARBON DIOXIDE 25 mmol/L (21-32); CHLORIDE 104 mmol/L (98-107); CREATININE 2.5 mg/dL (0.6-1.3); GLUCOSE 101 mg/dL (74-106); POTASSIUM 3.9 mmol/L (3.5-5.1); SODIUM SERUM 136 mmol/L (136-145); UREA NITROGEN, BLOOD 27 mg/dL (7-18)
[2023-07-24 08:09] LABS: ALANINE AMINOTRANSFERASE 13 U/L (12-78); ALBUMIN 2.7 g/dL (3.4-5.0); ALKALINE PHOSPHATASE 82 U/L (46-116); ASPARTATE AMINOTRANSFERASE 25 U/L (15-37); BILIRUBIN,TOTAL 1.2 mg/dL (0.2-1.0); MAGNESIUM 2.2 mg/dL (1.8-2.4); PHOSPHORUS 3.9 mg/dL (2.5-4.9); TOTAL PROTEIN, SERUM 6.6 g/dL (6.4-8.2)
[2023-07-24] MEDS: SEVELAMER CARBONATE 800 MG TABLET PO SCH ×3 (08:27→17:30)
[2023-07-24] MEDS: ASPIRIN EC 81 MG TABLET.DR PO SCH (08:27)
[2023-07-24] MEDS: LINAGLIPTIN 5 MG TABLET PO SCH (08:27)
[2023-07-24] MEDS: HEPARIN SODIUM, PORCINE 5000 UNITS/1 ML VIAL SQ SCH ×2 (08:30→16:38)
[2023-07-24] MEDS: THERAHONEY GEL 1.5 OZ TUBE TP SCH (08:30)
[2023-07-24 12:00] VITALS: BP 105/70; TEMP 98; O2SAT 97
[2023-07-24 12:34] LABS: ANISOCYTOSIS 1+; BASOPHILS % (MANUAL) 0 % (0.0-2.0); EOSINOPHILS % (MANUAL) 0 % (0-4); LYMPHOCYTES % (MANUAL) 14 % (16-48); MONOCYTES % (MANUAL) 16 % (0-11.0); NEUTROPHILS % (MANUAL) 70 (42-76); PLATELET ESTIMATE ADEQUATE
[2023-07-24] MEDS ORDERED: VANCOMYCIN 500 MG in IV D5W 100 ML IV PRN (15:30)
[2023-07-24 16:00] VITALS: BP 99/69; TEMP 98; O2SAT 97
[2023-07-24 20:00] VITALS: BP 103/66; TEMP 97.5; O2SAT 94
[2023-07-24] MEDS: GUAIFENESIN/D-METHORPHAN HB 5 ML UDC PO PRN (23:33)
[2023-07-25] VITALS: BP 102/62; TEMP 97.9; O2SAT 94
[2023-07-25] MEDS: ACETAMINOPHEN 325 MG TABLET PO PRN (03:22)
[2023-07-25 04:00] VITALS: BP 101/65; TEMP 97.3; O2SAT 95
[2023-07-25 07:05] LABS: BASOPHILS % (AUTO) 0.6 % (0.0-2.0); EOSINOPHILS % (AUTO) 0.4 % (0.0-6.0); HEMATOCRIT 37 % (33-45); HEMOGLOBIN 11.4 g/dL (11.5-14.8); LYMPHOCYTES # (AUTO) 0.8 K/uL (0.8-4.8); LYMPHOCYTES % (AUTO) 17.4 % (20.0-44.0); MEAN CORPUSCULAR HEMOGLOBIN 31 PG (26.0-33.0); MEAN CORPUSCULAR HGB CONC 31 g/dl (31.0-36.0); MEAN CORPUSCULAR VOLUME 100 fL (82-100); MONOCYTES # (AUTO) 0.8 K/uL (0.1-1.30); MONOCYTES % (AUTO) 18.7 % (2.0-12.0); NEUTROPHILS # (AUTO) 2.7 K/uL (1.8-8.9); NEUTROPHILS % (AUTO) 62.9 % (43.0-81.0); PLATELET COUNT (AUTO) 169 K/uL (150-450); RED BLOOD CELL COUNT(AUTO) 3.67 MIL/uL (4.0-5.2); RED CELL DISTRIBUTION WIDTH 17.9 % (11.5-15.0); WHITE BLOOD COUNT (AUTO) 4.3 K/uL (4.3-11.0)
[2023-07-25 07:45] LABS: ALANINE AMINOTRANSFERASE 13 U/L (12-78); ALBUMIN 2.8 g/dL (3.4-5.0); ALKALINE PHOSPHATASE 92 U/L (46-116); ASPARTATE AMINOTRANSFERASE 25 U/L (15-37); BILIRUBIN,TOTAL 1.1 mg/dL (0.2-1.0); CALCIUM, SERUM 8.4 mg/dL (8.5-10.1); CARBON DIOXIDE 21 mmol/L (21-32); CHLORIDE 104 mmol/L (98-107); CREATININE 3.1 mg/dL (0.6-1.3); GLUCOSE 92 mg/dL (74-106); MAGNESIUM 2.2 mg/dL (1.8-2.4); POTASSIUM 4.1 mmol/L (3.5-5.1); SODIUM SERUM 136 mmol/L (136-145); TOTAL PROTEIN, SERUM 6.6 g/dL (6.4-8.2); UREA NITROGEN, BLOOD 40 mg/dL (7-18)
[2023-07-25] MEDS: PANTOPRAZOLE 40 MG TABLET.DR PO SCH (07:53)
[2023-07-25] MEDS: SEVELAMER CARBONATE 800 MG TABLET PO SCH ×3 (07:53→17:44)
[2023-07-25 08:00] VITALS: BP 98/64; TEMP 97.9; O2SAT 95
[2023-07-25] MEDS: THERAHONEY GEL 1.5 OZ TUBE TP SCH (09:00)
[2023-07-25] MEDS: ASPIRIN EC 81 MG TABLET.DR PO SCH (09:14)
[2023-07-25] MEDS: LINAGLIPTIN 5 MG TABLET PO SCH (09:14)
[2023-07-25] MEDS: HEPARIN SODIUM, PORCINE 5000 UNITS/1 ML VIAL SQ SCH ×2 (09:20→16:30)
[2023-07-25] MEDS ORDERED: NEPRO VAN 237 ML CAN PO PRN (10:00)
[2023-07-25 12:00] VITALS: BP 105/61; TEMP 97.9; O2SAT 95
[2023-07-25 16:00] VITALS: BP 121/71; TEMP 98.9; O2SAT 95
[2023-07-25] MEDS: LEVOFLOXACIN (250MG) 250 MG TABLET PO SCH (16:29)
[2023-07-25] MEDS ORDERED: VANCOMYCIN 1 GM in IV D5W 250ml IV ONE (18:00)
[2023-07-25 20:00] VITALS: BP 111/76; TEMP 97.9; O2SAT 95
[2023-07-25] MEDS: GUAIFENESIN/D-METHORPHAN HB 5 ML UDC PO PRN (21:48)
[2023-07-26] VITALS (16 sets, daily range): BP systolic 88–112; BP diastolic 51–73; TEMP 96.8–98.8; O2SAT 94–100
[2023-07-26] MEDS ORDERED: IPRATROPIUM/ALBUTEROL INHALER NEB SCH (06:00)
[2023-07-26] MEDS: ALBUTEROL FS 2.5 MG/0.5 ML VIAL.NEB NEB SCH ×5 (07:59→23:24)
[2023-07-26] MEDS: IPRATROPIUM NEB FS 0.5 MG/2.5 ML AMPUL.NEB NEB SCH ×5 (07:59→23:24)
[2023-07-26] MEDS: SEVELAMER CARBONATE 800 MG TABLET PO SCH ×5 (08:00→17:40)
[2023-07-26] MEDS: LINAGLIPTIN 5 MG TABLET PO SCH ×2 (08:11→09:00)
[2023-07-26] MEDS: ASPIRIN EC 81 MG TABLET.DR PO SCH (08:11)
[2023-07-26] MEDS: HEPARIN SODIUM, PORCINE 5000 UNITS/1 ML VIAL SQ SCH ×2 (08:11→17:38)
[2023-07-26] MEDS: PANTOPRAZOLE 40 MG TABLET.DR PO SCH (08:11)
[2023-07-26 08:39] LABS: BASOPHILS % (AUTO) 0.6 % (0.0-2.0); EOSINOPHILS % (AUTO) 0.2 % (0.0-6.0); HEMATOCRIT 36 % (33-45); HEMOGLOBIN 11.3 g/dL (11.5-14.8); LYMPHOCYTES % (AUTO) 24.8 % (20.0-44.0); MEAN CORPUSCULAR HEMOGLOBIN 31 PG (26.0-33.0); MEAN CORPUSCULAR HGB CONC 32 g/dl (31.0-36.0); MEAN CORPUSCULAR VOLUME 98 fL (82-100); MONOCYTES # (AUTO) 0.6 K/uL (0.1-1.30); NEUTROPHILS # (AUTO) 2.3 K/uL (1.8-8.9); NEUTROPHILS % (AUTO) 59.4 % (43.0-81.0); PLATELET COUNT (AUTO) 158 K/uL (150-450); RED BLOOD CELL COUNT(AUTO) 3.63 MIL/uL (4.0-5.2); RED CELL DISTRIBUTION WIDTH 17.4 % (11.5-15.0); WHITE BLOOD COUNT (AUTO) 3.9 K/uL (4.3-11.0)
[2023-07-26] MEDS: THERAHONEY GEL 1.5 OZ TUBE TP SCH (09:17)
[2023-07-26 09:28] LABS: ALANINE AMINOTRANSFERASE 14 U/L (12-78); ALBUMIN 2.8 g/dL (3.4-5.0); ALKALINE PHOSPHATASE 92 U/L (46-116); ASPARTATE AMINOTRANSFERASE 25 U/L (15-37); BILIRUBIN,TOTAL 1.1 mg/dL (0.2-1.0); CALCIUM, SERUM 8.3 mg/dL (8.5-10.1); CARBON DIOXIDE 26 mmol/L (21-32); CHLORIDE 101 mmol/L (98-107); CREATININE 2.5 mg/dL (0.6-1.3); GLUCOSE 132 mg/dL (74-106); MAGNESIUM 2.1 mg/dL (1.8-2.4); PHOSPHORUS 4.3 mg/dL (2.5-4.9); POTASSIUM 4.4 mmol/L (3.5-5.1); SODIUM SERUM 133 mmol/L (136-145); TOTAL PROTEIN, SERUM 6.7 g/dL (6.4-8.2); UREA NITROGEN, BLOOD 28 mg/dL (7-18)
[2023-07-26] MEDS: GUAIFENESIN LA 600 MG TABLET.SA PO SCH ×3 (13:00→20:36)
[2023-07-26] MEDS ORDERED: ALPRAZOLAM 0.25 MG TABLET PO PRN (13:00)
[2023-07-26] MEDS ORDERED: DEXTROSE 50%-WATER 50 ML DISP.SYRIN IV PRN (17:00)
[2023-07-26] MEDS: BLOOD SUGAR DIAGNOSTIC 1 EACH STRIP IN SCH ×2 (17:47→22:13)
[2023-07-26] MEDS: LEVETIRACETAM (250 MG) 250 MG TABLET PO SCH (20:37)
[2023-07-26] MEDS: INSULIN REGULAR, HUMAN 100 UNIT/ML 3 ML VIAL SQ PRN (22:14)
[2023-07-27] VITALS (14 sets, daily range): BP systolic 91–106; BP diastolic 52–86; TEMP 97.3–98.2; O2SAT 92–100
[2023-07-27] MEDS: ALBUTEROL FS 2.5 MG/0.5 ML VIAL.NEB NEB SCH ×6 (04:08→23:30)
[2023-07-27] MEDS: IPRATROPIUM NEB FS 0.5 MG/2.5 ML AMPUL.NEB NEB SCH ×6 (04:08→23:30)
[2023-07-27] MEDS: BLOOD SUGAR DIAGNOSTIC 1 EACH STRIP IN SCH ×6 (07:30→22:57)
[2023-07-27 07:36] LABS: BASOPHILS % (AUTO) 0.7 % (0.0-2.0); HEMATOCRIT 34 % (33-45); LYMPHOCYTES # (AUTO) 0.7 K/uL (0.8-4.8); LYMPHOCYTES % (AUTO) 16.7 % (20.0-44.0); MEAN CORPUSCULAR HEMOGLOBIN 32 PG (26.0-33.0); MEAN CORPUSCULAR HGB CONC 32 g/dl (31.0-36.0); MEAN CORPUSCULAR VOLUME 98 fL (82-100); MONOCYTES # (AUTO) 0.7 K/uL (0.1-1.30); MONOCYTES % (AUTO) 17.5 % (2.0-12.0); NEUTROPHILS # (AUTO) 2.6 K/uL (1.8-8.9); NEUTROPHILS % (AUTO) 65.1 % (43.0-81.0); PLATELET COUNT (AUTO) 149 K/uL (150-450); RED BLOOD CELL COUNT(AUTO) 3.49 MIL/uL (4.0-5.2); RED CELL DISTRIBUTION WIDTH 17.5 % (11.5-15.0); WHITE BLOOD COUNT (AUTO) 3.9 K/uL (4.3-11.0)
[2023-07-27 07:54] LABS: CALCIUM, SERUM 8.6 mg/dL (8.5-10.1); CARBON DIOXIDE 23 mmol/L (21-32); CHLORIDE 101 mmol/L (98-107); CREATININE 2.3 mg/dL (0.6-1.3); GLUCOSE 103 mg/dL (74-106); MAGNESIUM 2.2 mg/dL (1.8-2.4); PHOSPHORUS 4.7 mg/dL (2.5-4.9); SODIUM SERUM 134 mmol/L (136-145); UREA NITROGEN, BLOOD 21 mg/dL (7-18)
[2023-07-27] MEDS: LEVETIRACETAM (250 MG) 250 MG TABLET PO SCH ×2 (08:35→22:18)
[2023-07-27] MEDS: ASPIRIN EC 81 MG TABLET.DR PO SCH (08:35)
[2023-07-27] MEDS: HEPARIN SODIUM, PORCINE 5000 UNITS/1 ML VIAL SQ SCH ×2 (08:36→17:10)
[2023-07-27] MEDS: SEVELAMER CARBONATE 800 MG TABLET PO SCH ×3 (08:36→17:06)
[2023-07-27] MEDS: LINAGLIPTIN 5 MG TABLET PO SCH (08:37)
[2023-07-27] MEDS: GUAIFENESIN LA 600 MG TABLET.SA PO SCH ×2 (08:37→22:18)
[2023-07-27] MEDS: THERAHONEY GEL 1.5 OZ TUBE TP SCH (09:09)
[2023-07-27 12:41] LABS: ANISOCYTOSIS 1+; BAND % (MANUAL) 4 % (0.0-5.0); BASOPHILS % (MANUAL) 0 % (0.0-2.0); EOSINOPHILS % (MANUAL) 0 % (0-4); LYMPHOCYTES % (MANUAL) 14 % (16-48); MONOCYTES % (MANUAL) 16 % (0-11.0); NEUTROPHILS % (MANUAL) 66 (42-76); PLATELET ESTIMATE ADEQUATE
[2023-07-27] MEDS: ACETAMINOPHEN 325 MG TABLET PO PRN (15:34)
[2023-07-27] MEDS: LEVOFLOXACIN (250MG) 250 MG TABLET PO SCH (17:06)
[2023-07-27] MEDS: FLUTICASONE PROPIONATE 16 GM BOTTLE NS SCH (17:09)
[2023-07-27] MEDS ORDERED: POLYETHYLENE GLYCOL 3350 17 GM POWD.PACK PO PRN (18:00)
[2023-07-27] MEDS: INSULIN REGULAR, HUMAN 100 UNIT/ML 3 ML VIAL SQ PRN (22:59)
[2023-07-28] VITALS (12 sets, daily range): BP systolic 98–128; BP diastolic 60–87; TEMP 96.7–97.9; O2SAT 94–99
[2023-07-28] MEDS: IPRATROPIUM NEB FS 0.5 MG/2.5 ML AMPUL.NEB NEB SCH ×7 (03:30→23:28)
[2023-07-28] MEDS: ALBUTEROL FS 2.5 MG/0.5 ML VIAL.NEB NEB SCH ×7 (03:30→23:28)
[2023-07-28] MEDS: GUAIFENESIN/D-METHORPHAN HB 5 ML UDC PO PRN (04:03)
[2023-07-28] MEDS: BLOOD SUGAR DIAGNOSTIC 1 EACH STRIP IN SCH ×4 (07:30→22:45)
[2023-07-28 07:42] LABS: BASOPHILS % (AUTO) 0.6 % (0.0-2.0); EOSINOPHILS % (AUTO) 0.2 % (0.0-6.0); HEMATOCRIT 36 % (33-45); HEMOGLOBIN 11.4 g/dL (11.5-14.8); LYMPHOCYTES # (AUTO) 0.8 K/uL (0.8-4.8); LYMPHOCYTES % (AUTO) 15.7 % (20.0-44.0); MEAN CORPUSCULAR HEMOGLOBIN 31 PG (26.0-33.0); MEAN CORPUSCULAR HGB CONC 32 g/dl (31.0-36.0); MEAN CORPUSCULAR VOLUME 98 fL (82-100); MONOCYTES # (AUTO) 0.8 K/uL (0.1-1.30); MONOCYTES % (AUTO) 15.8 % (2.0-12.0); NEUTROPHILS # (AUTO) 3.6 K/uL (1.8-8.9); NEUTROPHILS % (AUTO) 67.7 % (43.0-81.0); PLATELET COUNT (AUTO) 172 K/uL (150-450); RED BLOOD CELL COUNT(AUTO) 3.61 MIL/uL (4.0-5.2); RED CELL DISTRIBUTION WIDTH 17.4 % (11.5-15.0); WHITE BLOOD COUNT (AUTO) 5.3 K/uL (4.3-11.0)
[2023-07-28 08:23] LABS: CALCIUM, SERUM 8.6 mg/dL (8.5-10.1); CARBON DIOXIDE 24 mmol/L (21-32); CHLORIDE 98 mmol/L (98-107); CREATININE 2.9 mg/dL (0.6-1.3); GLUCOSE 103 mg/dL (74-106); MAGNESIUM 2.4 mg/dL (1.8-2.4); PHOSPHORUS 5.7 mg/dL (2.5-4.9); POTASSIUM 4.3 mmol/L (3.5-5.1); SODIUM SERUM 134 mmol/L (136-145); UREA NITROGEN, BLOOD 31 mg/dL (7-18)
[2023-07-28] MEDS: SEVELAMER CARBONATE 800 MG TABLET PO SCH ×3 (08:51→18:17)
[2023-07-28] MEDS: LINAGLIPTIN 5 MG TABLET PO SCH (09:00)
[2023-07-28] MEDS: THERAHONEY GEL 1.5 OZ TUBE TP SCH (09:00)
[2023-07-28] MEDS: ASPIRIN EC 81 MG TABLET.DR PO SCH (09:24)
[2023-07-28] MEDS: LEVETIRACETAM (250 MG) 250 MG TABLET PO SCH ×2 (09:24→21:49)
[2023-07-28] MEDS: GUAIFENESIN LA 600 MG TABLET.SA PO SCH ×2 (09:24→21:49)
[2023-07-28] MEDS: HEPARIN SODIUM, PORCINE 5000 UNITS/1 ML VIAL SQ SCH (09:25)
[2023-07-28] MEDS: FLUTICASONE PROPIONATE 16 GM BOTTLE NS SCH ×2 (09:27→17:00)
[2023-07-28] MEDS ORDERED: FLUT16SP16 BNOSTRILS (12:11)
[2023-07-28] MEDS ORDERED: LEVO500T90 PO (12:11)
[2023-07-28] MEDS ORDERED: MIDO5TAB4 PO (12:11)
[2023-07-28] MEDS ORDERED: LEVE500T9 PO (12:11)
[2023-07-28] MEDS ORDERED: GUAI600T53 PO (12:11)
[2023-07-28] MEDS: INSULIN REGULAR, HUMAN 100 UNIT/ML 3 ML VIAL SQ PRN (22:46)
[2023-07-29] VITALS: BP 110/65; TEMP 97.8; O2SAT 98
[2023-07-29] MEDS ORDERED: FLUTICASONE PROPIONATE 16 GM BOTTLE NS ONE (00:30)
[2023-07-29] MEDS: IPRATROPIUM NEB FS 0.5 MG/2.5 ML AMPUL.NEB NEB SCH ×4 (03:30→15:22)
[2023-07-29] MEDS: ALBUTEROL FS 2.5 MG/0.5 ML VIAL.NEB NEB SCH ×4 (03:30→15:23)
[2023-07-29 04:00] VITALS: BP 105/60; TEMP 97.5; O2SAT 97
[2023-07-29] MEDS ORDERED: MAG HYDROX/AL HYDROX/SIMETH 30 ML UDC PO PRN (04:30)
[2023-07-29] MEDS: BLOOD SUGAR DIAGNOSTIC 1 EACH STRIP IN SCH ×3 (07:41→17:45)
[2023-07-29 08:00] VITALS: BP_SYST 105; BP_SYST 99; BP_DIAS 68; BP_DIAS 72; TEMP 97.3; O2SAT 95
[2023-07-29 08:01] LABS: CALCIUM, SERUM 8.9 mg/dL (8.5-10.1); CARBON DIOXIDE 24 mmol/L (21-32); CHLORIDE 95 mmol/L (98-107); CREATININE 3.5 mg/dL (0.6-1.3); GLUCOSE 124 mg/dL (74-106); POTASSIUM 4.5 mmol/L (3.5-5.1); SODIUM SERUM 132 mmol/L (136-145); UREA NITROGEN, BLOOD 43 mg/dL (7-18)
[2023-07-29 08:05] VITALS: O2SAT 100
[2023-07-29] MEDS: FLUTICASONE PROPIONATE 16 GM BOTTLE NS SCH ×2 (08:32→17:49)
[2023-07-29] MEDS: LINAGLIPTIN 5 MG TABLET PO SCH (08:33)
[2023-07-29] MEDS: THERAHONEY GEL 1.5 OZ TUBE TP SCH (08:33)
[2023-07-29] MEDS: LEVETIRACETAM (250 MG) 250 MG TABLET PO SCH (08:33)
[2023-07-29] MEDS: ASPIRIN EC 81 MG TABLET.DR PO SCH (08:33)
[2023-07-29] MEDS: SEVELAMER CARBONATE 800 MG TABLET PO SCH ×3 (08:33→17:49)
[2023-07-29] MEDS: GUAIFENESIN LA 600 MG TABLET.SA PO SCH (08:33)
[2023-07-29 12:00] VITALS: BP 101/73; TEMP 97.9; O2SAT 95
[2023-07-29] MEDS ORDERED: ALPR0.25 PO (13:20)
[2023-07-29] MEDS: LEVOFLOXACIN (250MG) 250 MG TABLET PO SCH (17:53)
== END 2023-07-29 19:03 | disposition home health service (06) | DRG 280 ==
LOC: ER 10:29 → TELE1 14:03
PROVIDERS: ATTEND Nurse Practitioner Family
PROC: 5A1D70Z Performance of Urinary Filtration, Intermittent, Less than 6 Hours Per Day (ICD-10-PCS; principal; 2023-07-20)
DX: I13.2 Hypertensive heart and chronic kidney disease with heart failure and with stage 5 chronic kidney disease, or end stage renal disease (principal); I50.23 Acute on chronic systolic (congestive) heart failure; I21.4 Non-ST elevation (NSTEMI) myocardial infarction; J96.01 Acute respiratory failure with hypoxia; N18.6 End stage renal disease; J90 Pleural effusion, not elsewhere classified; E87.1 Hypo-osmolality and hyponatremia; L97.219 Non-pressure chronic ulcer of right calf with unspecified severity; J06.9 Acute upper respiratory infection, unspecified; E78.5 Hyperlipidemia, unspecified; D63.8 Anemia in other chronic diseases classified elsewhere; E87.6 Hypokalemia; I25.10 Atherosclerotic heart disease of native coronary artery without angina pectoris; I42.9 Cardiomyopathy, unspecified; Z79.84 Long term (current) use of oral hypoglycemic drugs; Z87.440 Personal history of urinary (tract) infections; E11.40 Type 2 diabetes mellitus with diabetic neuropathy, unspecified; Z99.2 Dependence on renal dialysis; E11.22 Type 2 diabetes mellitus with diabetic chronic kidney disease; I27.20 Pulmonary hypertension, unspecified; I08.0 Rheumatic disorders of both mitral and aortic valves; E11.51 Type 2 diabetes mellitus with diabetic peripheral angiopathy without gangrene; L53.9 Erythematous condition, unspecified; S81.802A Unspecified open wound, left lower leg, initial encounter; S81.801A Unspecified open wound, right lower leg, initial encounter; X58.XXXA Exposure to other specified factors, initial encounter; Y93.9 Activity, unspecified; Y92.009 Unspecified place in unspecified non-institutional (private) residence as the place of occurrence of the external cause; S31.119A Laceration without foreign body of abdominal wall, unspecified quadrant without penetration into peritoneal cavity, initial encounter; Z91.158 Patient's noncompliance with renal dialysis for other reason
CPT/HCPCS: 36415; 70450-TC; 71045-TC; 80048-TC; 80053-TC; 80061-TC; 80076-TC; 80202-TC; 82962-TC; 83735-TC; 83880; 84100-TC; 84443-TC; 84484-TC; 85025-TC; 86706; 87340; 90935-TC; 94799-TC; 97110-TC; 97116-TC; 97530-TC; A4216; A4223; A6253; A6403; G0378; J1644; J1815; J3370; J7030; J7040; J7050; J7060; P9047